=== PATIENT | female | born 1960 | race Caucasian/White ===

== ENCOUNTER → 2017-05-23 | Outpatient (CLI) | payer OTHER ==
--- NOTE | 2017-05-24 07:50 | MM ---
Reason for exam: additional evaluation requested from prior study. Last mammogram was performed 1 year and 1 month ago. History: Patient is postmenopausal, has history of colon cancer at age 51, has history of breast cancer at age 39, and had first child at age 32. Family history of breast cancer in maternal aunt at age 75. Benign stereotactic core biopsy of the left breast, April 06, 2004. Benign stereotactic core biopsy of the right breast, April 06, 2004. Lumpectomy of the right breast, 2003. Radiation therapy, 2003. Core biopsy of the left breast. Core biopsy of the right breast. Took antineoplastic for 5 years beginning at age 43. Physical Findings: Nurse did not find any significant physical abnormalities on exam. MG Diagnostic Mammo w CAD KENNY Bilateral CC and MLO view(s) were taken. Prior study comparison: May 04, 2016, bilateral MG diagnostic mammo w CAD KENNY. April 12, 2015, bilateral MG screening mammo w CAD. There are scattered fibroglandular densities. Finding #1: Architectural distortion in the upper outer quadrant of the right breast consistent with known lumpectomy. Finding #2: There are typically benign round calcifications in both breasts. Previous mammotome biopsy in the left breast. These results were verbally communicated with the patient and result sheet given to the patient on 05/23/17. ASSESSMENT: Benign, BI-RAD 2 RECOMMENDATION: Follow-up diagnostic mammogram of both breasts in 1 year.
== END | disposition home or self-care (01) ==
LOC: RADMAMWWP 14:55
PROVIDERS: ATTEND Internal Medicine Hematology & Oncology
DX: Z08 Encounter for follow-up examination after completed treatment for malignant neoplasm (principal); Z85.3 Personal history of malignant neoplasm of breast

== ENCOUNTER → 2017-08-14 | Outpatient (CLI) | payer OTHER ==
[2017-08-14 18:00] LABS: Basophils % (A) 0 %; Eosinophils # (A) 0.1 k/uL (0-0.7); Eosinophils % (A) 2 %; HCT 44.2 % (34.0-46.0); HGB 14.2 gm/dL (11.4-16.0); Lymphocytes # (A) 0.8 k/uL (1.0-4.8); Lymphocytes % (A) 16 %; MCH 28.6 pg (25.0-35.0); MCHC 32.2 g/dL (31.0-37.0); MCV 88.7 fL (80.0-100.0); Mean Platelet Volume 8.9; Monocytes # (A) 0.2 k/uL (0-1.0); Monocytes % (A) 4 %; Neutrophils # (A) 3.9 k/uL (1.3-7.7); Neutrophils % (A) 77 %; Platelet Count 190 k/uL (150-450); RBC 4.98 m/uL (3.80-5.40); RDW 13.9 % (11.5-15.5)
== END | disposition home or self-care (01) ==
LOC: LABPAT 14:49
PROVIDERS: ATTEND Obstetrics & Gynecology
DX: Z01.818 Encounter for other preprocedural examination (principal); E11.9 Type 2 diabetes mellitus without complications; I10 Essential (primary) hypertension; N95.0 Postmenopausal bleeding; D25.9 Leiomyoma of uterus, unspecified; Z01.812 Encounter for preprocedural laboratory examination
CPT/HCPCS: 85025; 87086; 93005

== ENCOUNTER → 2017-08-14 | Outpatient (CLI) | payer OTHER ==
[2017-08-14 16:51] LABS: Albumin 4.1 g/dL (3.5-5.0); Calcium 9.5 mg/dL (8.4-10.2); Potassium 4.2 mmol/L (3.5-5.1); Total Bilirubin 0.4 mg/dL (0.2-1.3); Total Protein 7.3 g/dL (6.3-8.2)
[2017-08-15 03:50] LABS: Hemoglobin A1C 5.9 % (4.0-6.0)
== END | disposition home or self-care (01) ==
LOC: LABWHC1 14:54
PROVIDERS: ATTEND Family Medicine
DX: E11.9 Type 2 diabetes mellitus without complications (principal); I10 Essential (primary) hypertension; E03.9 Hypothyroidism, unspecified; E78.5 Hyperlipidemia, unspecified
CPT/HCPCS: 36415; 80053; 80061; 83036; 84443

== ENCOUNTER 2017-08-20 05:25 | Day surgery (SDC) | payer OTHER ==
--- NOTE | 2017-08-16 08:48 | HP ---
HISTORY AND PHYSICAL History and physical for surgery this upcoming August 20. This is a 56-year-old white female, 2, para 2, who presents with postmenopausal bleeding. The patient has a history of endometrial hyperplasia, most recent endometrial biopsy on 06/18/17 is significant for weakly proliferative tissue. She has a history of both colon cancer and breast cancer, and in light of her history of endometrial hyperplasia without atypia as well as obesity and continued postmenopausal bleeding, my recommendation is for vaginal hysterectomy. Patient saw Dr. Huitron for the potential option of sling procedure as well, and he deems this additional procedure unnecessary. REVIEW OF SYSTEMS: Review of systems is otherwise negative, patient is still sexually active. PAST MEDICAL HISTORY: Past medial history is significant for breast cancer, colon cancer, diabetes, hypertension, thyroid disorder. PAST SURGICAL HISTORY: Colon surgery 2011, endometrial ablation in the past, right breast surgery and tubal ligation. CURRENT MEDICATIONS: 1. Levothyroxine 75 mcg daily. 2. Lisinopril 30 mg two 10 mg tablets in the morning, one 10 mg tablet in the evening. 3. Metformin 500 mg 1 tablet 3 times daily. 4. Metoprolol tartrate 50 mg once daily. 5. Vitamin D2 once weekly. 6. Meloxicam 15 mg tablet once daily. ALLERGIES: None known. FAMILY HISTORY: Family history is significant for myocardial infarction in the patient's father. REPRODUCTIVE HISTORY: Reproductive history IS significant for 2 full-term vaginal deliveries, uncomplicated. SOCIAL HISTORY: Patient is , she has never been a smoker, she works as a assistant associate professor at [employer]. PHYSICAL EXAMINATION: On exam, this is a pleasant female, 5 feet 1 inch, 181 pounds, BMI 34. HEENT examination is negative, good dentition, no thyromegaly, no lymphadenopathy. Breast exam reveals breasts to be symmetric to inspection, no axillary adenopathy, no skin changes, no nipple discharge, no discernible lesions or masses. Abdominal exam reveals no organomegaly, no tenderness, active bowel sounds, no evidence of herniorrhaphy. Chest is clear to auscultation in all craven anteriorly and posteriorly. Cardiac exam reveals no murmur, click, or rub, normal S1 and S2. External genitalia is well-estrogenized, cervix is multiparous, uterus is small, mobile, midline, nontender. Adnexa are negative bilaterally. There is a small amount of uterine descensus noted. Rectal exam reveals FIT negative stool, good sphincter tone, no rectocele or cystocele appreciated. IMPRESSION: Continued postmenopausal bleeding with a small fibroid uterus, status post endometrial ablation with recent negative endometrial biopsy. Personal history of breast and colon cancer as well as obesity. PLAN: We will proceed with vaginal hysterectomy. The risks, benefits, and alternatives of this plan have been discussed in detail. The patient is aware of the risk of bleeding, infection, perforation or damage to bowel, bladder, ureters, or indeed any pelvic or abdominal organs. She understands the risks of anesthesia to include aspiration, nerve damage, or even . All questions are answered, ACOG pamphlet on the procedure has been given to the patient and she has reviewed it in detail. MMODL / IJN: [id number] /
[~2017-08-20 05:25] MED LIST: ceFAZolin IN SWFI 2 GM/20 ML SYRINGE IVP ONE
[2017-08-20] MEDS ORDERED: SCOPOLAMINE 1.5MG/72HR PATCH TRANSDERM ONE (05:30)
[2017-08-20] MEDS ORDERED: LACTATED RINGERS 1,000 ML IV SCH ×2 (05:30→19:00)
[2017-08-20] MEDS ORDERED: DEXAMETHASONE SOD PHOSPHATE 10 MG/ML 1 ML VIAL IV ONE (05:30)
[2017-08-20] MEDS ORDERED: MIDAZOLAM 2 MG/2 ML VIAL IV PRN (05:30)
[2017-08-20] MEDS ORDERED: fentaNYL (PF) 50 MCG/ML 2 ML AMP IV PRN (05:30)
[2017-08-20 06:33] LABS: Glucose,Whole Blood 95 mg/dL (75-99)
[2017-08-20] MEDS ORDERED: LIDOCAINE 1% 20 ML VIAL (10MG/ML) FOR IV START INTRADERMA ONE (06:37)
[2017-08-20] MEDS: ONDANSETRON 4 MG/2 ML VIAL IVP ONE ×2 (06:37→17:00)
[2017-08-20] MEDS ORDERED: VASOPRESSIN 20 UNIT/ML 1 ML VIAL SQ ONE (07:49)
[2017-08-20] MEDS ORDERED: BACITRACIN 500 UNIT/GM OINT 28.4 GM TUBE TOPICAL ONE (07:53)
[2017-08-20] MEDS ORDERED: LACTATED RINGERS 1,000 ML IV ONE (08:05)
[2017-08-20] MEDS ORDERED: SIMETHICONE 80 MG CHEWABLE PO PRN (08:38)
[2017-08-20] MEDS ORDERED: Acetaminophen-Codeine 300-30mg TAB PO PRN (08:38)
[2017-08-20] MEDS ORDERED: diphenhydrAMINE 50 MG/ML 1 ML VIAL IVP PRN (08:38)
--- NOTE | 2017-08-20 08:38 | P.OP ---
Date of Procedure: 08/20/17 Preoperative Diagnosis: Postmenopausal bleeding, history of endometrial hyperplasia without atypia Postoperative Diagnosis: Pathology pending Procedure(s) Performed: Vaginal hysterectomy Anesthesia: spinal Surgeon: Va Aj Brake Lining Maker #1: Dacia Garcia Estimated Blood Loss (ml): 50 IV fluids (ml): 900 Urine output (ml): 75 Pathology: other (Cervix and uterus) Condition: stable Disposition: PACU Operative Findings: Normal-appearing ovaries bilaterally Description of Procedure: Patient is brought to the operating suite, a spinal with Duramorph is performed. Anesthesia was administered and she is placed in the dorsal lithotomy position. Antibiotics given. The appropriate timeout is performed to assure proper patient and procedural identification. The cervix, vagina, perineal body and lower abdomen are all prepped and draped in the usual sterile fashion. The weighted speculum was placed into the vagina. Bladder is drained for approximately 50 mL of concentrated urine. Anterior lip of the cervix is grasped with a double-tooth tenaculum. Cervix is injected circumferentially with dilute Pitressin solution, 10 mL total. A skull valley blade scalpel is then used to incise the mucosa circumferentially with a V like positioning in the back. A sponge rolled finger is used to sweep the mucosa from the underlying planes. The peritoneum is entered at 6:00 with a Metzenbaum scissor, suture tied with 2- 0 Vicryl. This is held with a hemostat. Large billed speculum is then placed into the peritoneal cavity. Care at all times is taken to keep the mucosa swept well from the operative field to avoid bladder and/or ureteral injury. Uterosacral cardinal ligaments are identified, clamped cut and tied with a 0 Vicryl suture, held in a fanlike fashion with hemostats. Uterine vasculature is skeletonized, clamped cut and suture ligated. 2 additional pedicles are taken superior to the vessels. The anterior peritoneum was then entered with the Bovie at 12:00. Amie clamps are used across the final pedicles and the specimen is removed. These pedicles are suture tied with 0 Vicryl, flashed, and retied for excellent hemostasis. Bilateral ovaries are inspected and noted to be normal, left in situ per the patient's wishes. All pedicles are once again visualized and noted to be hemostatically intact. The 2-0 Vicryl suture at 6:00 is brought around circumferentially to close the peritoneum. The previously held uterosacral cardinal ligament complex these are now brought across to incorporate the opposite complex as well as vaginal mucosa. 2 additional [id number] sutures are used to close the vaginal mucosa. Hemostasis is very good. The vagina is packed with one-inch iodophor gauze with basic tracing. Beavers catheter is placed for another 25 mL of urine, it is noted to be clear. All sponge needle and enhancement counts are correct at the end of the procedure. Patient is brought back to the recovery room in good condition with stable vital signs including blood pressure 120/89, pulse 77.
[2017-08-20 09:10] LABS: Glucose,Whole Blood 150 mg/dL (75-99)
[2017-08-20] MEDS ORDERED: MORPHINE SULFATE/PF 10MG/10ML VL IVP PRN (09:33)
[2017-08-20] MEDS ORDERED: METOCLOPRAMIDE 5 MG/ML 2 ML VIAL IVP PRN (09:33)
[2017-08-20] MEDS ORDERED: PROMETHAZINE INJ 6.25 MG in SODIUM CHLORIDE 0.9% 50 ML IVPB PRN (09:33)
[2017-08-20] MEDS ORDERED: NALOXONE 0.4 MG/ML 1 ML VIAL IV PRN (09:33)
[2017-08-20 11:00] VITALS: BMI 33.4
[2017-08-20] MEDS ORDERED: ONDANSETRON 4 MG/2 ML VIAL IVP STA (17:00)
[2017-08-20] MEDS ORDERED: ZOLPIDEM 5 MG TAB PO PRN (21:00)
--- NOTE | 2017-08-21 08:05 | P.DS ---
Providers Date of admission: 08/20/16 Expected date of discharge: 08/21/17 Attending physician: Va Aj Primary care physician: Nichelle Juarez [facility] Course: This is a 56-year-old female who presented with a history of continued postmenopausal bleeding. She in addition had uterine prolapse of a mild degree. Endometrial biopsy had revealed endometrial hyperplasia without atypia. This was treated with cyclic progesterone, and yet the bleeding continued. Repeat biopsy revealed disordered proliferative endometrium and the patient elected to have surgical palliation of this condition. Please see my dictated history and physical for details. Patient was admitted and underwent a vaginal hysterectomy under my care yesterday. She did well intraoperatively. Ovaries appeared normal and therefore were left in situ per her wishes. Please see dictated operative note for details. This morning the patient is doing well. Beavers catheter and vaginal packing been removed. Pain is well controlled. Vital signs a been stable, however patient's oxygenation levels have been low. Without oxygen she is approximately 90-91% O2 saturation, with 2-3 L nasal cannula oxygenation this improves to 98%. She is working on the Tri-Flow at the bedside nicely. She is tolerating regular food, is voiding, and is passing flatus. Plan is to allow patient to shower this morning and monitor her oxygenation status. If it continues to improve, she will be discharged home later today in good condition. I've asked her to follow-up with me in the office in 2 weeks. I reminded her no intercourse, tampons or douching. She will use over-the- counter products as needed for pain, Advil Motrin or Aleve as directed. I've asked her to call me with any fevers shakes or chills, bloody vaginal discharge , with any issues voiding or with bowel movements, with any pain not alleviated by [id number] products, or with any vaginal bleeding. Indeed she is to call with any difficulties. She will follow-up with her primary care physician' s for pulmonary status. Oxygenation levels do not improve after showering increased ambulation, I will consult hospitalist prior to discharge. Patient Condition at Discharge: Good Plan - Discharge Summary Discharge Rx Participant: Yes New Discharge Prescriptions: No Action metFORMIN HCL [Glucophage] 500 mg PO TID Levothyroxine Sodium [Synthroid] 75 mcg PO DAILY Meloxicam 15 mg PO DAILY Lisinopril [Zestril] 20 mg PO DAILY Metoprolol Tartrate [Lopressor] 50 mg PO DAILY Ergocalciferol [Vitamin D2] 50,000 unit PO MO Lisinopril [Zestril] 10 mg PO HS Mirabegron [Myrbetriq] 50 mg PO DAILY Discharge Medication List Levothyroxine Sodium [Synthroid] 75 mcg PO DAILY 06/30/14 [History] Lisinopril [Zestril] 20 mg PO DAILY 06/30/14 [History] Meloxicam 15 mg PO DAILY 06/30/14 [History] Metoprolol Tartrate [Lopressor] 50 mg PO DAILY 06/30/14 [History] metFORMIN HCL [Glucophage] 500 mg PO TID 06/30/14 [History] Ergocalciferol [Vitamin D2] 50,000 unit PO MO 08/10/17 [History] Lisinopril [Zestril] 10 mg PO HS 08/10/17 [History] Mirabegron [Myrbetriq] 50 mg PO DAILY 08/10/17 [History] Follow up Appointment(s)/Referral(s): Va Aj MD [STAFF PHYSICIAN] - 2 Weeks
--- NOTE | 2017-08-21 10:52 | P.PN ---
Progress Note - Text Progress Note Date: 08/21/17 Postoperative day 1 status post vaginal hysterectomy ,, and intrathecal morphine given for postoperative analgesia, patient doing well, there is no anesthesia related complications, Patient had no headache, vital signs stable , Assessment and plan= postop day 1 status post , doing well there is no anesthesia related complication.
[2017-08-21] MEDS: IBUPROFEN 600 MG TAB PO PRN ×2 (11:03→21:28)
--- NOTE | 2017-08-21 12:26 | P.CON ---
Consult Note - . Consult date: 08/21/17 Assessment/Plan:: 89 year all female with multiple medical problems including history of breast cancer colon cancer diabetes who was admitted to the hospital for hysterectomy the patient did have episodes of hypoxia consulted for that patient states that she did have a little bit shortness of breath yesterday but after they put her on oxygen the shortness of breath resolved Is not complaining of any chest pain or vomiting or fever at this time Patient did have history SECONDHAND smoking at home Vital Signs - 24 hr 08/20/17 08/20/17 08/20/17 12:30 12:33 14:00 Temperature Pulse Rate [ 60 Pulse Oximetery ] Respiratory 16 16 Rate Blood Pressure 98/57 [Right Arm Supine] O2 Sat by Pulse 96 95 96 Oximetry 08/20/17 08/20/17 08/20/17 14:25 14:33 15:00 Temperature 97.5 F L 97.6 F Pulse Rate [ 77 79 Pulse Oximetery ] Respiratory 17 16 Rate Blood Pressure 102/50 90/61 [Right Arm Supine] O2 Sat by Pulse 96 96 95 Oximetry 08/20/17 08/20/17 08/20/17 16:00 17:00 17:32 Temperature 98.9 F Pulse Rate [ 88 Pulse Oximetery ] Respiratory 17 18 18 Rate Blood Pressure 101/63 [Right Arm Supine] O2 Sat by Pulse 95 Oximetry 08/20/17 08/20/17 08/20/17 17:57 20:00 22:00 Temperature 98.3 F Pulse Rate [ 79 75 Pulse Oximetery ] Respiratory 18 16 16 Rate Blood Pressure 89/59 [Right Arm Supine] O2 Sat by Pulse 95 97 97 Oximetry 08/20/17 08/21/17 08/21/17 23:59 02:00 04:00 Temperature 98.2 F 98.1 F Pulse Rate [ 80 Pulse Oximetery ] Respiratory 16 16 16 Rate Blood Pressure 110/64 109/55 [Right Arm Supine] O2 Sat by Pulse 97 96 97 Oximetry 08/21/17 06:00 Temperature Pulse Rate [ 58 L Pulse Oximetery ] Respiratory 18 Rate Blood Pressure [Right Arm Supine] O2 Sat by Pulse 96 Oximetry Review of systems and systems has been reviewed all negative and positive findings as per HPI Constitutional: No acute distress, conversant, pleasant Eyes: Anicteric sclerae, moist conjunctiva, no lid-lag PERRLA ENMT: NC/AT Oropharynx clear, no erythema, exudates Neck: Supple, FROM, no masses, or JVD No carotid bruits No thyromegaly Lungs: Decreased breath sounds bilaterally no upper increases Cardiovascular: Heart regular in rate and rhythm, No murmurs, gallops, or rubs No peripheral edema Abdominal: Soft, no guarding, Skin: Normal temperature, tone, texture, turgor No induration No subcutaneous nodules No rash, lesions No ulcers Extremities: No digital cyanosis Psychiatric:Alert and oriented to person, place and time Appropriate affect Intact judgement Neuro: Muscles Strength 5/5 in all 4 extremities Laboratory Tests Range/Units 08/14/17 08/20/17 08/20/17 15:29 06:25 09:08 POC Glucose (mg/dL) (75-99) mg/dL 95 150 H POC Glu Palletiser Operator Jammie Sylvester Tammy Blood Type A Positive Blood Type Recheck A Pos Antibody Screen NEGATIVE Spec Expiration Date 08/22/20172328 Assessment and plan Hypoxia acute exact etiology not clear We will check VQ scan of the lungs to rule out PE since the patient is ALLERGIC to IV dye We will also check computed tomography scan of the lungs to rule out any metastatic disease as the patient did have history of breast cancer and colon cancer in the past We'll check EKG and cardiac enzymes Keep the patient on oxygen DuoNeb as needed We will also stop IV hydration and consider IV Lasix for possible volume overload Diabetes acute patient with sliding scale insulin History of colon cancer History of breast cancer History of secondhand smoking for several years
--- NOTE | 2017-08-21 13:16 | CT ---
EXAMINATION TYPE: CT chest wo con DATE OF EXAM: 08/21/2017 COMPARISON: NONE HISTORY: Patient complains of hypoxia and tachycardia post hysterectomy. CT DLP: 423.9 mGycm. Automated Exposure Control for Dose Reduction was Utilized. TECHNIQUE: CT scan of the thorax is performed without IV contrast. FINDINGS: LUNGS: There are tiny right greater than left pleural effusions. There is scattered atelectatic valentine e in both bases. There is additional linear scarring and/or atelectasis in both lower lobes. No pneum othorax is seen bilaterally. Tracheobronchial tree is patent MEDIASTINUM: Lack of IV contrast is noted to limit evaluation for mediastinal and especially hilar ad enopathy. There are no definitive greater than 1 cm hilar or mediastinal lymph nodes. No significan t pericardial effusion is seen. Mild cardiomegaly is present. There is mild coronary artery calcifica tion which is noted marker for coronary artery disease. OTHER: Underlying S-shaped scoliosis upper to midthoracic spine is present. Surgical clips right nikki st from lumpectomy are noted. There is 1 cm splenule in inferior splenic hilum. There is mild fat rep laced atrophy of pancreas. Cholecystectomy clips are noted. IMPRESSION: Cardiomegaly with tiny bilateral pleural effusions. Correlate for mild fluid overload sta te or CHF exacerbation. Scattered areas of atelectasis in both lower lobes. No suspicious focal infil trate.
--- NOTE | 2017-08-21 14:24 | NM ---
EXAMINATION TYPE: NM pul vent and perfuse DATE OF EXAM: 08/21/2017 COMPARISON: Same day chest CT HISTORY: Hypoxia and tachycardia rule out pulmonary embolism TECHNIQUE: Utilizing inhalation of 68.4 mCi Tc 99m DTPA aerosol and intravenous injection of 5.45 mC i of Tc 99m MAA, ventilation and perfusion images are acquired post injection in multiple projections . FINDINGS: Few scattered small matching defects are seen. There is no evidence of mismatched defects. IMPRESSION: Low scintigraphic probability for pulmonary embolism
[2017-08-21 14:57] LABS: ABG Base Excess 0.9 mmol/L; ABG HCO3 25 mmol/L (21-25); ABG Oxygen Saturation 92.9 % (94-97); ABG PCO2 39 mmHg (35-45); ABG PH 7.43 (7.35-7.45); ABG PO2 58 mmHg (83-108); ABG TCO2 27 mmol/L (19-24)
[2017-08-21] MEDS: IPRATROPIUM-ALBUTEROL 3 ML NEB INHALATION SCH ×3 (15:09→20:58)
[2017-08-21 15:31] LABS: Albumin 3.2 g/dL (3.5-5.0); Calcium 9.4 mg/dL (8.4-10.2); Total Bilirubin 0.5 mg/dL (0.2-1.3); Total Protein 5.9 g/dL (6.3-8.2)
[2017-08-21] MEDS: methylPREDNISolone SOD SUCCI 40 MG/ML 1 ML VIAL IV SCH ×2 (15:31→23:33)
[2017-08-21] MEDS: FUROSEMIDE 10 MG/ML 2 ML VIAL IV SCH (15:31)
[2017-08-21 15:33] LABS: Basophils # (A) 0.1 k/uL (0-0.2); Basophils % (A) 1 %; Eosinophils # (A) 0.1 k/uL (0-0.7); Eosinophils % (A) 1 %; HCT 35.3 % (34.0-46.0); HGB 12.1 gm/dL (11.4-16.0); Lymphocytes # (A) 1.7 k/uL (1.0-4.8); Lymphocytes % (A) 16 %; MCH 29.4 pg (25.0-35.0); MCHC 34.3 g/dL (31.0-37.0); MCV 85.7 fL (80.0-100.0); Mean Platelet Volume 8.6; Monocytes # (A) 0.5 k/uL (0-1.0); Monocytes % (A) 5 %; Neutrophils # (A) 7.8 k/uL (1.3-7.7); Neutrophils % (A) 76 %; Platelet Count 201 k/uL (150-450); RBC 4.12 m/uL (3.80-5.40); RDW 13.9 % (11.5-15.5); WBC 10.3 k/uL (3.8-10.6)
[2017-08-21] MEDS: SENNOSIDES-DOCUSATE SODIUM 1 EACH TAB PO SCH ×2 (21:29→21:31)
[2017-08-22] MEDS: FUROSEMIDE 10 MG/ML 2 ML VIAL IV SCH ×2 (00:46→03:46)
[2017-08-22] MEDS: IPRATROPIUM-ALBUTEROL 3 ML NEB INHALATION SCH ×3 (04:12→12:14)
--- NOTE | 2017-08-22 07:22 | P.PN ---
Subjective Progress Note Date: 08/22/17 Principal diagnosis: Postoperative day #2, hypoxemia of uncertain origin. Objective - Vital Signs Vital signs: Vital Signs Temp 98.8 F 08/21/17 20:00 Pulse 99 08/22/17 04:29 Resp 14 08/22/17 06:00 BP 116/64 08/21/17 20:00 Pulse Ox 93 L 08/22/17 04:00 Intake & Output 08/21/17 08/22/17 08/22/17 18:59 06:59 18:59 Output Total 2400 Balance -2400 Weight 81.647 kg Output: Urine 2400 Other: # Voids 4 1 - Constitutional General appearance: Present: average body habitus, cooperative - EENT Eyes: Present: PERRLA ENT: Present: hearing grossly normal - Neck Thyroid: bilateral: normal size - Respiratory Respiratory: bilateral: CTA - Cardiovascular Rhythm: regular Heart sounds: normal: S1, S2 - Gastrointestinal General gastrointestinal: Present: normal bowel sounds - Genitourinary Genitourinary Comment(s): Scant vaginal drainage consistent with postoperative day 2, vaginal hysterectomy - Integumentary Integumentary: Present: normal - Neurologic Neurologic: Present: CNII-XII intact - Musculoskeletal Musculoskeletal: Present: strength equal bilaterally - Psychiatric Psychiatric: Present: A&O x's 3, appropriate affect, intact judgment & insight - Labs CBC & Chem 7: 08/21/17 15:02 08/21/17 15:02 Labs: Abnormal Lab Results - Last 24 Hours (Table) 08/21/17 08/21/17 08/21/17 Range/Units 14:48 15:02 15:02 Neutrophils # 7.8 H (1.3-7.7) k/uL ABG pO2 58 L (83-108) mmHg ABG Total CO2 27 H (19-24) mmol/L ABG O2 Saturation 92.9 L (94-97) % BUN 23 H (7-17) mg/dL Creatinine 1.15 H (0.52-1.04) mg/dL Glucose 121 H (74-99) mg/dL AST 60 H (14-36) U/L Total Protein 5.9 L (6.3-8.2) g/dL Albumin 3.2 L (3.5-5.0) g/dL Assessment and Plan Plan: Continue evaluation per medical team, cardiology consult ordered for today, Dr. Carlson aware. Anticipate discharge home today, with outpatient follow-up as deemed appropriate. Time with Patient: Less than 30
[2017-08-22] MEDS: methylPREDNISolone SOD SUCCI 40 MG/ML 1 ML VIAL IV SCH (08:17)
[2017-08-22] MEDS: IBUPROFEN 600 MG TAB PO PRN (08:28)
[2017-08-22] MEDS ORDERED: FUROSEMIDE 10 MG/ML 2 ML VIAL IV STA (09:24)
[2017-08-22] MEDS ORDERED: POTASSIUM CHLORIDE ER 10 MEQ TAB.ER.PRT PO STA (09:26)
[2017-08-22] MEDS: SENNOSIDES-DOCUSATE SODIUM 1 EACH TAB PO SCH (09:57)
--- NOTE | 2017-08-22 10:13 | ECHOF ---
Referral Reason:pain/shortness of breath/post procedure MEASUREMENTS -------- HEIGHT: 154.9 cm WEIGHT: 81.6 kg BP: 116/64 RVIDd: 2.4 cm (< 3.3) IVSd: 1.1 cm (0.6 - 1.1) LVIDd: 3.9 cm (3.9 - 5.3) LVPWd: 1.1 cm (0.6 - 1.1) IVSs: 1.4 cm LVIDs: 2.7 cm LVPWs: 1.2 cm LA Diam: 2.9 cm (2.7 - 3.8) LAESV Index (A-L): 19.82 ml/m Ao Diam: 3.0 cm (2.0 - 3.7) AV Cusp: 1.9 cm (1.5 - 2.6) EPSS: 0.5 cm MV E Thuan: 1.06 m/s MV DecT: 142 ms MV A Thuan: 1.24 m/s MV E/A Ratio: 0.85 RAP: 5.00 mmHg RVSP: 25.37 mmHg MV EF SLOPE: 95.74 mm/s (70 - 150) MV EXCURSION: 1.34 cm (> 18.000) FINDINGS -------- Sinus rhythm. This was a technically good study. The left ventricular size is normal. There is borderline concentric left ventricular hypertrophy. Overall left ventricular systolic function is normal with, an EF between 55 - 60 %. The right ventricle is normal in size. Normal LA size by volume 22+/-6 ml/m2. The right atrium is normal in size. The aortic valve is trileaflet and appears structurally normal. There is trace mitral regurgitation. Mild tricuspid regurgitation present. Right ventricular systolic pressure is normal at < 35 mmHg. There is no pulmonic regurgitation present. The aortic root size is normal. Normal inferior vena cava with normal inspiratory collapse consistent with estimated right atrial pre ssure of 5 mmHg. There is no pericardial effusion. CONCLUSIONS -------- 1. Sinus rhythm. 2. This was a technically good study. 3. The left ventricular size is normal. 4. There is borderline concentric left ventricular hypertrophy. 5. Overall left ventricular systolic function is normal with, an EF between 55 - 60 %. 6. The right ventricle is normal in size. 7. Normal LA size by volume 22+/-6 ml/m2. 8. The right atrium is normal in size. 9. The aortic valve is trileaflet and appears structurally normal. 10. There is trace mitral regurgitation. 11. Mild tricuspid regurgitation present. 12. Right ventricular systolic pressure is normal at < 35 mmHg. 13. There is no pulmonic regurgitation present. 14. The aortic root size is normal. 15. Normal inferior vena cava with normal inspiratory collapse consistent with estimated right atrial pressure of 5 mmHg. 16. There is no pericardial effusion. COLLECTION SUPERVISOR: KENTON Campo
--- NOTE | 2017-08-22 11:57 | CONS ---
CONSULTATION This is a 56-year-old lady with a history of hypertension and type 2 diabetes, who sees Dr. Arceo in the outpatient setting. She also has hypothyroidism. She was admitted to the hospital electively for a vaginal hysterectomy for fibroids and dysfunctional uterine bleeding. Following the surgery yesterday on day 1 postop, she started having shortness of breath. She was seen by the hospitalist and advised to have a V/Q scan which was also unremarkable for any significant suggestion of pulmonary embolism. She continued to have shortness of breath and therefore I was asked to see her. On questioning, patient indicates to me that her breathing is easier today compared to yesterday. She was somewhat short winded yesterday but after receiving 2 doses of Lasix, which was last evening and this morning, she actually feels better. She denies any chest discomfort. EKG was unremarkable. Heart rate was about 90 beats per minute without any acute changes with sinus rhythm. Her troponin level was also normal. She is resting comfortably at this time. On reviewing the operative record, it appears that this lady received nearly a liter of fluid intraoperatively. I am not sure how much urine output she had, that is not very well documented. At the time of my evaluation, her breathing is easier. She denies chest pain, has less short of breath compared to yesterday. PAST MEDICAL HISTORY: 1. Hypertension. 2. Type 2 diabetes mellitus. 3. History of dysfunctional uterine bleeding underwent a vaginal hysterectomy performed 48 hours ago. SOCIAL HISTORY: Patient is not a smoker. Does not consume alcohol. ALLERGIES: Patient is allergic to IODINE DYE. MEDICATIONS: Medications at home include metformin 500 mg t.i.d., Lopressor 50 mg daily, lisinopril 20 mg in the morning, 10 mg in the evening, Synthroid 75 mcg daily, and vitamin D supplement. PHYSICAL EXAMINATION: On examination, blood pressure is 140/70, pulse rate is about 90 per minute, regular. HEENT: Unremarkable. Fundus was not examined by me. Neck is supple I cannot appreciate any JVD. There is no carotid bruit. Heart exam reveals S1, S2 heard normally. No significant gallop, rub, or murmur is detected. Lungs reveal fine rales over both bases, more so on the right base. Abdomen is soft, nontender. I did not do a detailed examination. Lower extremities reveal palpable pulses. No edema. Central nervous system is normal. EKG revealed a sinus mechanism, no acute changes. LABORATORY DATA: Laboratory data reveals that troponin was normal. IMPRESSION: 1. Probable mild episode of diastolic acute heart failure with nearly 1 L of fluid administration intraoperatively. However, this condition is improving significantly. 2. History of hypertension with probably some left ventricular hypertrophy. 3. History of type 2 diabetes mellitus. 4. Patient is status post vaginal hysterectomy 48 hours ago. RECOMMENDATIONS: I am recommending an echocardiogram. I will also obtain a BNP. I will give additional 20 mg of Lasix orally, 10 mEq of potassium. Check BMP at noon time and she can be discharged this evening on the same home medications and follow up with Dr. Arceo in about 1 to 2 weeks. I discussed my thoughts in detail with the patient as well as with her nurse. Thank you very much for the consult. PAOLO / NILS: [id number] /
--- NOTE | 2017-08-22 12:02 | P.CNPUL ---
History of Present Illness Consult date: 08/22/17 Reason for consult: dyspnea, hypoxemia, abnormal CXR/CT Chief complaint: Shortness of breath History of present illness: Consult dated 08/22/2017 56-year-old female who is status post vaginal hysterectomy. He was apparently done by Dr. Va Aj. The patient apparently developed some postoperative hypoxemia. She is short of breath. Today we evaluate her over on the fourth floor. She sitting at the bedside. The patient is mildly to And dyspneic. She 's had a ventilation perfusion lung scan which was low probability for pulmonary embolism. She also a CT which showed evidence of small effusions right greater than left and evidence of mild fluid overload. There was cardiomegaly. Her BNP was mildly elevated at 1140 and her troponin was negative. Apparently cardiology is cleared her. Her echocardiogram was good. She has no history of any lung disease. She denies any asthma emphysema a COPD chronic bronchitis, etc. She is a lifelong nonsmoker. Never been short of breath before. I suspect that her shortness of breath relates to some fluid overload may be from intraoperative fluid administration and/or some not taking deep breaths because of the recent surgery. A chest x-ray was never done. According to the nurse, the patient's doing much better now. Her room air saturations are excellent and even with walking, she does not desaturate. That was apparently not the case yesterday. The patient denies any pain. She is coughing and producing some phlegm. She may have a very mild case of bronchitis. Review of Systems A 12 point review of systems is positive for shortness of breath. She is bit of a cough with some green phlegm production. No fever or chills. No chest pain. No coughing up of blood. Past Medical History Past Medical History: Cancer, Diabetes Mellitus, Hyperlipidemia, Hypertension, Musculoskeletal Disorder, Thyroid Disorder Additional Past Medical History / Comment(s): RT Breast CA, colon CA; Back probs r/t fall 2007. VARICOSE VEINS. THICKENING ON UTERUS, PM W/ OCC SPOTTING. History of Any Multi-Drug Resistant Organisms: None Reported Past Surgical History: Bowel Resection, Breast Surgery, Cholecystectomy, Tubal Ligation Additional Past Surgical History / Comment(s): RT BREAST LUMPECTOMY. Past Anesthesia/Blood Transfusion Reactions: Motion Sickness Past Psychological History: No Psychological Hx Reported Smoking Status: Never smoker Past Alcohol Use History: None Reported Past Drug Use History: None Reported - Past Family History Father Family Medical History: Cancer Medications and Allergies Home Medications Medication Instructions Recorded Confirmed Type Levothyroxine Sodium [Synthroid] 75 mcg PO DAILY 06/30/14 08/20/17 History Lisinopril [Zestril] 20 mg PO DAILY 06/30/14 08/20/17 History Meloxicam 15 mg PO DAILY 06/30/14 08/20/17 History Metoprolol Tartrate [Lopressor] 50 mg PO DAILY 06/30/14 08/20/17 History metFORMIN HCL [Glucophage] 500 mg PO TID 06/30/14 08/20/17 History Ergocalciferol [Vitamin D2] 50,000 unit PO MO 08/10/17 08/20/17 History Lisinopril [Zestril] 10 mg PO HS 08/10/17 08/20/17 History Mirabegron [Myrbetriq] 50 mg PO DAILY 08/10/17 08/20/17 History Allergies Allergy/AdvReac Type Severity Reaction Status Date / Time Iodinated Contrast- Oral and Allergy Rash/Hives Verified 08/20/17 06:11 IV Dye iodine AdvReac Rash/Hives Verified 08/20/17 06:11 Physical Exam Osteopathic Statement: *. No significant issues noted on an osteopathic structural exam other than those noted in the History and Physical/Consult. Vitals: Vital Signs Temp Pulse Pulse Pulse Resp BP Pulse Ox 08/22/17 10:00 90 94 24 08/22/17 08:18 92 08/22/17 08:10 86 97 08/22/17 08:00 97.8 F 90 24 145/87 08/22/17 06:00 14 08/22/17 04:29 99 08/22/17 04:18 99 08/22/17 04:00 15 93 L 08/22/17 02:00 14 93 L 08/21/17 21:12 100 08/21/17 21:00 104 H 08/21/17 20:00 98.8 F 98 18 116/64 93 L 08/21/17 18:03 20 08/21/17 16:00 98.4 F 78 18 118/70 95 08/21/17 15:20 80 08/21/17 15:10 72 08/21/17 14:00 65 18 95 08/21/17 12:00 67 18 96 Intake and Output 08/21/17 08/22/17 08/22/17 22:59 06:59 14:59 Output Total 1450 Balance -1450 Output: Urine 1450 Other: # Voids 4 1 1 Weight 81.647 kg No acute distress, oriented 3. The patient's currently not on any oxygen therapy. HEENT examination is grossly unremarkable. Mucous membranes are moist. No oral lesions. Neck supple. Full range of motion. No adenopathy thyromegaly or neck vein distention. Cardiovascular examination reveals regular rhythm rate. S1-S2 normal. No S3 or S4. No discernible murmur noted. Lungs reveal clear breath sounds. Her sounds are equal bilaterally. No adventitious lung sounds including wheezes rhonchi or crackles. Abdomen soft bowel sounds are heard. No masses or tenderness. Extremities are intact. No cyanosis clubbing or edema. Skin is without rash or lesion. Neurologic examination is brief but nonfocal. Results - Laboratory Findings CBC and BMP: 08/21/17 15:02 08/21/17 15:02 ABG ABG pH 7.43 (7.35-7.45) 08/21/17 14:48 ABG pCO2 39 mmHg (35-45) 08/21/17 14:48 ABG pO2 58 mmHg (83-108) L 08/21/17 14:48 ABG O2 Saturation 92.9 % (94-97) L 08/21/17 14:48 Abnormal lab findings: Abnormal Labs 08/20/17 08/21/17 08/21/17 09:08 14:48 15:02 Neutrophils # 7.8 H ABG pO2 58 L ABG Total CO2 27 H ABG O2 Saturation 92.9 L BUN Creatinine Glucose POC Glucose (mg/dL) 150 H AST Total Protein Albumin 08/21/17 15:02 Neutrophils # ABG pO2 ABG Total CO2 ABG O2 Saturation BUN 23 H Creatinine 1.15 H Glucose 121 H POC Glucose (mg/dL) AST 60 H Total Protein 5.9 L Albumin 3.2 L - Diagnostic Findings Chest x-ray: image reviewed CT scan - chest: image reviewed (Labs x-rays a medications are reviewed) Assessment and Plan Assessment: Assessment Postoperative hypoxemia, likely secondary to mild fluid overload from intraoperative fluid administration possible mild purulent tracheobronchitis, and postoperative atelectasis. No evidence of pulmonary most him Normal echocardiogram Status post vaginal hysterectomy No previous history of pulmonary disease Plan: Plan dated 08/22/2017 The patient is still mildly tachypnea can dyspneic. From our perspective she could be discharged home. I would want to make sure that she's walked up and down the hallway before discharge to make sure she does not desaturate. Also do recommend a short course of antibiotics something like a Z-Flaco would probably be fine. I would appreciate seeing her in the office post discharge if she continues to have shortness of breath. Would recommend deep breathing coughing and clearing of secretions. Would also recommend discharge with incentive spirometry. Agree with the administration of diuretics for mild fluid overload, likely secondary to intraoperative fluid administration. Echocardiogram looks good. No evidence of pulmonary most him from our perspective. We'll continue to follow as needed. Time with Patient: Greater than 30
[2017-08-22 12:45] LABS: Calcium 9.9 mg/dL (8.4-10.2); Potassium 3.7 mmol/L (3.5-5.1)
--- NOTE | 2017-08-22 13:04 | P.PN ---
Subjective Progress Note Date: 08/22/17 Principal diagnosis: Patient feels better today Shortness of breath improved Not complaining of any chest pain Patient ambulated twice without any significant drop in her O2 sat Vital Signs - 24 hr 08/21/17 08/21/17 08/21/17 14:00 15:10 15:20 Temperature Pulse Rate 72 80 Pulse Rate [ Bilateral Dorsalis Pedis] Pulse Rate [ 65 Pulse Oximetery ] Respiratory 18 Rate Blood Pressure [Right Arm Supine] O2 Sat by Pulse 95 Oximetry 08/21/17 08/21/17 08/21/17 16:00 18:03 20:00 Temperature 98.4 F 98.8 F Pulse Rate Pulse Rate [ Bilateral Dorsalis Pedis] Pulse Rate [ 78 98 Pulse Oximetery ] Respiratory 18 20 18 Rate Blood Pressure 118/70 116/64 [Right Arm Supine] O2 Sat by Pulse 95 93 L Oximetry 08/21/17 08/21/17 08/22/17 21:00 21:12 02:00 Temperature Pulse Rate 104 H 100 Pulse Rate [ Bilateral Dorsalis Pedis] Pulse Rate [ Pulse Oximetery ] Respiratory 14 Rate Blood Pressure [Right Arm Supine] O2 Sat by Pulse 93 L Oximetry 08/22/17 08/22/17 08/22/17 04:00 04:18 04:29 Temperature Pulse Rate 99 99 Pulse Rate [ Bilateral Dorsalis Pedis] Pulse Rate [ Pulse Oximetery ] Respiratory 15 Rate Blood Pressure [Right Arm Supine] O2 Sat by Pulse 93 L Oximetry 08/22/17 08/22/17 08/22/17 06:00 08:00 08:10 Temperature 97.8 F Pulse Rate 86 Pulse Rate [ 90 Bilateral Dorsalis Pedis] Pulse Rate [ Pulse Oximetery ] Respiratory 14 24 Rate Blood Pressure 145/87 [Right Arm Supine] O2 Sat by Pulse 97 Oximetry 08/22/17 08/22/17 08:18 10:00 Temperature Pulse Rate 92 Pulse Rate [ 90 Bilateral Dorsalis Pedis] Pulse Rate [ 94 Pulse Oximetery ] Respiratory 24 Rate Blood Pressure [Right Arm Supine] O2 Sat by Pulse Oximetry Constitutional: No acute distress, conversant, pleasant Eyes: Anicteric sclerae, moist conjunctiva, no lid-lag PERRLA ENMT: NC/AT Oropharynx clear, no erythema, exudates Neck: Supple, FROM, no masses, or JVD No carotid bruits No thyromegaly Lungs: Clear to auscultation Normal respiratory effort, no accessory muscle use Cardiovascular: Heart regular in rate and rhythm, No murmurs, gallops, or rubs No peripheral edema Abdominal: Soft Nontender, no guarding, rebound or rigidity Abdomen moving with respiration Normoactive bowel sounds No hepatomegaly, No splenomegaly No palpable mass No abdominal wall hernia noted Skin: Normal temperature, tone, texture, turgor No induration No subcutaneous nodules No rash, lesions No ulcers Extremities: No digital cyanosis No clubbing Pedal pulses intact and symmetrical Radial pulses intact and symmetrical Normal gait and station No calf tenderness Psychiatric:Alert and oriented to person, place and time Appropriate affect Intact judgement Hypoxia resolved VQ scan did not show any PE Computed tomography scan of the lung minimal cardiomegaly Shortness of breath likely due to bronchitis and mild volume overload Patient has been cleared to go home by cardiology and pulmonology Patient to follow up closely with pulmonology and cardiology Z-Flaco and albuterol has been given to the patient for outpatient Objective - Vital Signs Vital signs: Vital Signs Temp 97.8 F 08/22/17 08:00 Pulse 90 08/22/17 10:00 Resp 24 08/22/17 10:00 BP 145/87 08/22/17 08:00 Pulse Ox 97 08/22/17 08:10 Intake & Output 08/21/17 08/22/17 08/22/17 18:59 06:59 18:59 Output Total 2400 Balance -2400 Weight 81.647 kg Output: Urine 2400 Other: # Voids 4 1 1 - Labs CBC & Chem 7: 08/21/17 15:02 08/22/17 11:58 Labs: Abnormal Lab Results - Last 24 Hours (Table) 08/21/17 08/21/17 08/21/17 Range/Units 14:48 15:02 15:02 Neutrophils # 7.8 H (1.3-7.7) k/uL ABG pO2 58 L (83-108) mmHg ABG Total CO2 27 H (19-24) mmol/L ABG O2 Saturation 92.9 L (94-97) % BUN 23 H (7-17) mg/dL Creatinine 1.15 H (0.52-1.04) mg/dL Glucose 121 H (74-99) mg/dL AST 60 H (14-36) U/L Total Protein 5.9 L (6.3-8.2) g/dL Albumin 3.2 L (3.5-5.0) g/dL 08/22/17 Range/Units 11:58 Neutrophils # (1.3-7.7) k/uL ABG pO2 (83-108) mmHg ABG Total CO2 (19-24) mmol/L ABG O2 Saturation (94-97) % BUN 27 H (7-17) mg/dL Creatinine 1.05 H (0.52-1.04) mg/dL Glucose 183 H (74-99) mg/dL AST (14-36) U/L Total Protein (6.3-8.2) g/dL Albumin (3.5-5.0) g/dL
[2017-08-22 15:04] VITALS: BP 134/76; PULSE 86; RESP 22; TEMP 98.3
--- NOTE | 2017-08-22 20:39 | DS ---
DISCHARGE SUMMARY DISCHARGE ADDENDUM: DATE OF ADMISSION: 08/20/2017. ADMITTING DIAGNOSES: 1. Uterine prolapse. 2. Postmenopausal bleeding. DATE OF DISCHARGE: 08/22/2017 This is a 56-year-old female who presented under my care for vaginal hysterectomy for uterine prolapse, history of postmenopausal bleeding, previous endometrial hyperplasia without atypia with persistent bleeding despite cyclic progesterone. Please see my dictated history and physical for details. The patient was admitted and underwent vaginal hysterectomy with the spinal with Duramorph. She did well intraoperatively. Ovaries appeared normal and therefore were left in situ bilaterally. Estimated blood loss was minimal. Please see my dictated operative note for details. Postoperatively from the gynecologic perspective the patient did well, and was discharged yesterday morning pending improvement of oxygenation. Although the patient is young and not a smoker, her oxygen saturation remained 87% to 89% on room air. Attempting to wean the patient from nasal cannula oxygen was unsuccessful, and therefore hospitalist was consulted. Patient was seen by the hospitalist, who ordered a CT scan of the chest which was negative with the exception of mild cardiomegaly. Dr. Arceo of the cardiology service was consulted. Dr. Santos of the pulmonary service was consulted. V/Q scan was performed and was negative. Patient was ultimately started on inhaler treatment, was given Lasix for diuresis, and has been put on a Z-Flaco. Today medical clearance has been given for discharge home. She is instructed to follow up with Dr. Santos in the office in 1 to 2 weeks, and Dr. Arceo in the office as well in 1 to 2 weeks. She will follow up with me in the office in 2 weeks as well. Postoperative instructions have once again been reviewed, as detailed yesterday. MMODL / IJN: [id number] /
== END 2017-08-22 15:11 | disposition home or self-care (01) ==
LOC: OR 05:25 → 4FBP 08:56 → OR 08-22 15:11
PROVIDERS: ATTEND Obstetrics & Gynecology
DX: N95.0 Postmenopausal bleeding (principal); N80.0 Endometriosis of uterus; N72 Inflammatory disease of cervix uteri; N93.8 Other specified abnormal uterine and vaginal bleeding; D25.9 Leiomyoma of uterus, unspecified; N81.4 Uterovaginal prolapse, unspecified; T81.89XA Other complications of procedures, not elsewhere classified, initial encounter; R09.02 Hypoxemia; R06.82 Tachypnea, not elsewhere classified; R05 Cough; J90 Pleural effusion, not elsewhere classified; J98.11 Atelectasis; I08.1 Rheumatic disorders of both mitral and tricuspid valves; E66.9 Obesity, unspecified; Z68.33 Body mass index [BMI] 33.0-33.9, adult; E11.9 Type 2 diabetes mellitus without complications; I10 Essential (primary) hypertension; E03.9 Hypothyroidism, unspecified; Z85.038 Personal history of other malignant neoplasm of large intestine; Z85.3 Personal history of malignant neoplasm of breast; Z98.51 Tubal ligation status; Z77.22 Contact with and (suspected) exposure to environmental tobacco smoke (acute) (chronic); Z79.84 Long term (current) use of oral hypoglycemic drugs; Z79.890 Hormone replacement therapy; Z79.899 Other long term (current) drug therapy; Z79.1 Long term (current) use of non-steroidal anti-inflammatories (NSAID); Z91.041 Radiographic dye allergy status
CPT/HCPCS: 94640 ×2; 36600; 93005; 86900; 86901; 88305; 80053; 82805; 84484; 85025; 86850; 71250; 78582; 58260; A9540; A9567; J2250; J1100; J1940; J2920; J2405; J0690; 80048; 83880; 88307; 93306; 94760

== ENCOUNTER → 2018-05-24 | Outpatient (CLI) | payer OTHER ==
--- NOTE | 2018-05-24 13:55 | MM ---
Reason for exam: additional evaluation requested from prior study. Last mammogram was performed 1 year ago. History: Patient is postmenopausal, has history of colon cancer at age 51, has history of breast cancer at age 39, and had first child at age 32. Family history of breast cancer in maternal aunt at age 75. Benign stereotactic core biopsy of the left breast, April 06, 2004. Benign stereotactic core biopsy of the right breast, April 06, 2004. Lumpectomy of the right breast, 2003. Radiation therapy, 2003. Core biopsy of the left breast. Core biopsy of the right breast. Took antineoplastic for 5 years beginning at age 43. Physical Findings: Nurse did not find any significant physical abnormalities on exam. MG Diagnostic Mammo w CAD KENNY Bilateral CC and MLO view(s) were taken. Prior study comparison: May 23, 2017, bilateral MG diagnostic mammo w CAD KENNY. May 04, 2016, bilateral MG diagnostic mammo w CAD KENNY. There are scattered fibroglandular densities. Benign appearing bilateral calcifications. No suspicious abnormality. Post therapy change on the right. Post biopsy change on the left. These results were verbally communicated with the patient and result sheet given to the patient on 05/24/18. ASSESSMENT: Benign, BI-RAD 2 RECOMMENDATION: Follow-up diagnostic mammogram of both breasts in 1 year.
== END | disposition home or self-care (01) ==
LOC: RADMAMWWP 12:36
PROVIDERS: ATTEND Internal Medicine Hematology & Oncology
DX: Z08 Encounter for follow-up examination after completed treatment for malignant neoplasm (principal); Z85.3 Personal history of malignant neoplasm of breast
CPT/HCPCS: 77066

== ENCOUNTER → 2019-05-30 | Outpatient (CLI) | payer OTHER ==
--- NOTE | 2019-05-30 14:12 | MM ---
Reason for exam: additional evaluation requested from prior study. Last mammogram was performed 1 year ago. History: Patient is postmenopausal, has history of colon cancer at age 51, has history of breast cancer at age 39, and had first child at age 32. Family history of breast cancer in maternal aunt at age 75. Benign stereotactic core biopsy of the left breast, April 06, 2004. Benign stereotactic core biopsy of the right breast, April 06, 2004. Lumpectomy of the right breast, 2003. Radiation therapy, 2003. Core biopsy of the left breast. Core biopsy of the right breast. Took antineoplastic for 5 years beginning at age 39. Physical Findings: Nurse did not find any significant physical abnormalities on exam. MG Diagnostic Mammo w CAD KENNY Bilateral CC and MLO view(s) were taken. Prior study comparison: May 24, 2018, bilateral MG diagnostic mammo w CAD KENNY. May 23, 2017, bilateral MG diagnostic mammo w CAD KENNY. There are scattered fibroglandular densities. Finding: Architectural distortion in the upper outer quadrant of the right breast consistent with known lumpectomy changes. Previous mammotome biopsy in the left breast. There is no discrete abnormality. These results were verbally communicated with the patient and result sheet given to the patient on 05/30/19. ASSESSMENT: Benign, BI-RAD 2 RECOMMENDATION: Follow-up diagnostic mammogram of both breasts in 1 year.
== END | disposition home or self-care (01) ==
LOC: RADMAMWWP 12:32
PROVIDERS: ATTEND Family Medicine
DX: Z08 Encounter for follow-up examination after completed treatment for malignant neoplasm (principal); Z85.3 Personal history of malignant neoplasm of breast
CPT/HCPCS: 77066

== ENCOUNTER → 2020-02-24 | Outpatient (CLI) | payer OTHER ==
--- NOTE | 2020-02-24 14:46 | XR ---
Lumbar spine HISTORY: Chronic low back pain, M 25.5 5 views of lumbosacral spine There is no evident spondylolysis or spondylolisthesis. Lumbar vertebral bodies show preserved height and bone mineralization. Anterolisthesis grade 1 L4-5. There is loss of disc height at intervertebra l levels. Sclerosis present in the posterior elements of the lumbar spine. There is multilevel spondy losis. Vascular calcifications in the aortoiliac distribution. IMPRESSION: Degenerative disc disease and facet arthropathy.
== END | disposition home or self-care (01) ==
LOC: RADXRMAIN 13:30
PROVIDERS: ATTEND Family Medicine
DX: M51.36 Other intervertebral disc degeneration, lumbar region (principal); M47.816 Spondylosis without myelopathy or radiculopathy, lumbar region
CPT/HCPCS: 72110

== ENCOUNTER → 2020-05-31 | Outpatient (CLI) | payer OTHER ==
--- NOTE | 2020-05-31 11:34 | MM ---
Reason for exam: additional evaluation requested from prior study. Last mammogram was performed 1 year ago. History: Patient is postmenopausal, has history of colon cancer at age 51, has history of breast cancer at age 39, and had first child at age 32. Family history of breast cancer in maternal aunt at age 75. Benign stereotactic core biopsy of the left breast, April 06, 2004. Benign stereotactic core biopsy of the right breast, April 06, 2004. Lumpectomy of the right breast, 2003. Radiation therapy, 2003. Core biopsy of the left breast. Core biopsy of the right breast. Took antineoplastic for 10 years beginning at age 39. Physical Findings: Nurse did not find any significant physical abnormalities on exam. MG Diagnostic Mammo w CAD KENNY Bilateral CC and MLO view(s) were taken. Prior study comparison: May 30, 2019, bilateral MG diagnostic mammo w CAD KENNY. May 24, 2018, bilateral MG diagnostic mammo w CAD KENNY. There are scattered fibroglandular densities. Finding: Architectural distortion in the right breast consistent with known lumpectomy changes. Previous mammotome biopsy in the left breast. There is no discrete abnormality. These results were verbally communicated with the patient and result sheet given to the patient on 05/31/20. ASSESSMENT: Benign, BI-RAD 2 RECOMMENDATION: Follow-up diagnostic mammogram of both breasts in 1 year.
== END | disposition home or self-care (01) ==
LOC: RADMAMWWP 10:51
PROVIDERS: ATTEND Internal Medicine Hematology & Oncology
DX: Z08 Encounter for follow-up examination after completed treatment for malignant neoplasm (principal); Z85.3 Personal history of malignant neoplasm of breast
CPT/HCPCS: 77066

== ENCOUNTER → 2021-07-22 | Outpatient (CLI) | payer OTHER ==
--- NOTE | 2021-07-22 09:12 | MM ---
Reason for exam: additional evaluation requested from abnormal screening. Last mammogram was performed less than 1 month ago. History: Patient is postmenopausal, has history of colon cancer at age 51, has history of breast cancer at age 39, and had first child at age 32. Family history of breast cancer in maternal aunt at age 75. Benign stereotactic core biopsy of the left breast, April 06, 2004. Benign stereotactic core biopsy of the right breast, April 06, 2004. Lumpectomy of the right breast, 2003. Radiation therapy, 2003. Core biopsy of the left breast. Core biopsy of the right breast. Took antineoplastic for 10 years beginning at age 39. Physical Findings: Nurse did not find any significant physical abnormalities on exam. MG Work Up Mamm w CAD LT Spot compression CC, spot compression MLO, and ML view(s) were taken of the left breast. Prior study comparison: July 19, 2021, bilateral MG screening mammo w CAD. May 31, 2020, bilateral MG diagnostic mammo w CAD KENNY. 7mm nodule at approximately 12 o'clock 8cm from nipple. These results were verbally communicated with the patient and result sheet given to the patient on 07/22/21. ASSESSMENT: Incomplete: need additional imaging evaluation, BI-RAD 0 RECOMMENDATION: Ultrasound of the left breast.
--- NOTE | 2021-07-22 09:18 | USB ---
Reason for exam: additional evaluation requested from abnormal screening. History: Patient is postmenopausal, has history of colon cancer at age 51, has history of breast cancer at age 39, and had first child at age 32. Family history of breast cancer in maternal aunt at age 75. Benign stereotactic core biopsy of the left breast, April 06, 2004. Benign stereotactic core biopsy of the right breast, April 06, 2004. Lumpectomy of the right breast, 2003. Radiation therapy, 2003. Core biopsy of the left breast. Core biopsy of the right breast. Took antineoplastic for 10 years beginning at age 39. US Breast Workup Limited LT Left limited breast ultrasound including focal area of concern, retroareolar and axilla demonstrates no cystic or solid lesion seen. Scanned 10-2 o'clock. Given appearance on mammography stereotactic core biopsy recommended. These results were verbally communicated with the patient and result sheet given to the patient on 07/22/21. ASSESSMENT: Suspicious, BI-RAD 4 RECOMMENDATION: Stereotactic core biopsy of the left breast. Called Dr. Avilez's office with mammographic findings and has scheduled an appointment for the patient for 09/07/21 at 4:[address] Hewitt. Biopsy scheduled for 08/15/21 at 8:00. PRELIMINARY REPORT CALLED AND FAXED TO DR. HEWITT ON 07/22/21.
== END | disposition home or self-care (01) ==
LOC: RADMAMWWP 07:01
PROVIDERS: ATTEND Internal Medicine Hematology & Oncology
DX: N63.25 Unspecified lump in the left breast, overlapping quadrants (principal); Z85.3 Personal history of malignant neoplasm of breast; Z80.3 Family history of malignant neoplasm of breast; Z78.0 Asymptomatic menopausal state
CPT/HCPCS: 77065

== ENCOUNTER → 2021-08-15 | Day surgery (SDC) | payer OTHER ==
[2021-08-15 07:26] VITALS: RESP 16
[2021-08-15 08:23] VITALS: BP 143/84; PULSE 73; TEMP 98.1
--- NOTE | 2021-08-15 08:59 | MM ---
Stereotactic Mammotome core biopsy left breast. HISTORY: Nodule left breast The nodule in question within the left breast was targeted by the undersigned. Procedure was perform ed by the undersigned. Informed consent was obtained and all of the patients questions were answered. The standard sterile technique was utilized and appropriate local anesthesia was obtained with 1% l idocaine. Mammotome probe was advanced and multiple core samples were obtained and sent to pathology for interpretation. Microclip marker was deployed at the site of biopsy. Post procedural mammogram demonstrates appropriate deployment of radiopaque clip marker. The patient tolerated the procedure well and left the department in stable condition. Pathology results are pending. IMPRESSION: Successful stereotactic core biopsy left breast with pathology results pending.
== END | disposition home or self-care (01) ==
LOC: RADMAMWWP 06:58
PROVIDERS: ATTEND Surgery
DX: C50.912 Malignant neoplasm of unspecified site of left female breast (principal)
CPT/HCPCS: 88305; 88342; 88341; 19081; A4648; J2001

== ENCOUNTER 2021-10-06 09:32 | Day surgery (SDC) | payer OTHER ==
[2021-10-04 14:25] VITALS: BMI 34.0
[~2021-10-06 09:32] MED LIST changes: +ACETAMINOPHEN TAB 500 MG TAB PO PRN; +HEPARIN SODIUM,PORCINE/PF 5,000 UNIT/0.5 ML SYRINGE SQ PRN; +Pre Op ABX Message 1 EACH MISC MISCELLANE ONE; -ceFAZolin IN SWFI 2 GM/20 ML SYRINGE IVP ONE
[2021-10-06] MEDS ORDERED: ONDANSETRON 4 MG/2 ML VIAL IVP ONE (09:55)
[2021-10-06] MEDS ORDERED: MIDAZOLAM 2 MG/2 ML VIAL IV PRN (09:55)
[2021-10-06] MEDS ORDERED: LIDOCAINE 1% (10MG/ML) FOR IV START INTRADERMA PRN (09:55)
[2021-10-06] MEDS ORDERED: ALPRAZolam 0.25 MG TAB ONE (09:59)
[2021-10-06] MEDS ORDERED: DEXAMETHASONE SOD PHOSPHATE 4 MG/ML 1 ML VIAL IV ONE (10:00)
[2021-10-06] MEDS ORDERED: LACTATED RINGERS 1,000 ML IV ONE ×2 (10:08→15:30)
[2021-10-06 10:17] LABS: Glucose,Whole Blood 112 mg/dL (75-99)
--- NOTE | 2021-10-06 10:52 | P.GSHP ---
History of Present Illness H&P Date: 10/06/21 Chief Complaint: Left breast cancer 61-year-old female known to our service. History of right-sided breast cancer 18 years ago. Underwent radiation after breast conservation and tamoxifen for 10 years. Recent mammogram shows 7 mm mass left breast. biopsy shows grade 1 ductal carcinoma. Recent genetics normal. Patient interested in breast conservation. Past Medical History Past Medical History: Cancer, Diabetes Mellitus, Hyperlipidemia, Hypertension, Musculoskeletal Disorder, Thyroid Disorder Additional Past Medical History / Comment(s): R breast cancer, colon cancer, chronic pain, anemia, migraines History of Any Multi-Drug Resistant Organisms: None Reported Past Surgical History: Bowel Resection, Breast Surgery, Cholecystectomy, Hysterectomy, Tubal Ligation, Uterine Ablation Additional Past Surgical History / Comment(s): R breast lumpectomy Past Anesthesia/Blood Transfusion Reactions: Motion Sickness, Postoperative Nausea & Vomiting (PONV) Past Psychological History: No Psychological Hx Reported Additional Psychological History / Comment(s): situational depression Smoking Status: Never smoker Past Alcohol Use History: None Reported Past Drug Use History: None Reported - Past Family History Mother Family Medical History: No Reported History Additional Family Medical History / Comment(s): Mother is healthy and is 84 yrs old. Father Family Medical History: Cancer Additional Family Medical History / Comment(s): Father had prostate cancer. He d/t complication with intubation/lung puncture per pt. Medications and Allergies Home Medications Medication Instructions Recorded Confirmed Type Levothyroxine Sodium [Synthroid] 75 mcg PO DAILY 06/30/14 10/04/21 History Metoprolol Tartrate [Lopressor] 50 mg PO DAILY 06/30/14 10/04/21 History metFORMIN HCL [Glucophage] 500 mg PO TID 06/30/14 10/04/21 History Ergocalciferol [Vitamin D2 50,000 unit PO MO 08/10/17 10/04/21 History (DRISDOL)] Mirabegron [Myrbetriq] 50 mg PO DAILY 08/10/17 10/04/21 History lisinopriL 20 mg PO BID 08/21/18 10/04/21 History Cyclobenzaprine [Flexeril] 10 mg PO HS 08/04/21 10/04/21 History Latanoprost/Pf [Latanoprost 0.005% 1 drop BOTH EYES HS 08/04/21 10/04/21 History Eye Drop] Meloxicam 15 mg PO DAILY 10/04/21 10/04/21 History Allergies Allergy/AdvReac Type Severity Reaction Status Date / Time Iodinated Contrast Media Allergy Rash/Hives Verified 10/04/21 14:09 [Iodinated Contrast- Oral and IV Dye] Surgical - Exam Vital Signs Temp Pulse Resp BP Pulse Ox 98.4 F 97 18 174/90 97 10/06/21 10:07 10/06/21 10:07 10/06/21 10:07 10/06/21 10:07 10/06/21 10:07 The patient's examination took place in the presence of a medical office staff animal anatomy teacher. Please refer to the patient's written chart for specific details as to who the animal anatomy teacher was in this particular case. Physical exam: General: Well-developed, well-nourished HEENT: Normocephalic, sclerae nonicteric Right breast: no masses, no adenopathy, prior scars noted Left breast: no masses, no adenopathy Abdomen: Nontender, nondistended Extremities: No edema Neuro: Alert and oriented Results - Labs Abnormal Lab Results - Last 24 Hours (Table) 10/06/21 Range/Units 10:14 POC Glucose (mg/dL) 112 H (75-99) mg/dL Assessment and Plan (1) Breast cancer Narrative/Plan: We will proceed with left breast wire localization lumpectomy with sentinel lymp h node biopsy and injection at this time. Risks of bleeding, infection, scarring, possible need for further surgery, nerve injury, weakness, numbness, lymphedema reviewed. She understands and wishes to proceed. Current Visit: Yes Status: Acute Code(s): C50.919 - MALIGNANT NEOPLASM OF UNSP SITE OF UNSPECIFIED FEMALE BREAST SNOMED Code(s): 571920157
[2021-10-06] MEDS ORDERED: LIDOCAINE 1% INJ 10MG/ML (20 ML MDV) SQ ONE (11:28)
[2021-10-06 11:57] LABS: Basophils # (A) 0.1 k/uL (0-0.2); Basophils % (A) 1 %; Eosinophils # (A) 0.3 k/uL (0-0.7); Eosinophils % (A) 4 %; HCT 44.3 % (34.0-46.0); HGB 14.6 gm/dL (11.4-16.0); Lymphocytes # (A) 1.8 k/uL (1.0-4.8); Lymphocytes % (A) 29 %; MCH 29.8 pg (25.0-35.0); MCHC 32.8 g/dL (31.0-37.0); MCV 90.7 fL (80.0-100.0); Mean Platelet Volume 8.7; Monocytes # (A) 0.4 k/uL (0-1.0); Monocytes % (A) 7 %; Neutrophils # (A) 3.6 k/uL (1.3-7.7); Neutrophils % (A) 57 %; Platelet Count 216 k/uL (150-450); RBC 4.89 m/uL (3.80-5.40); RDW 13.8 % (11.5-15.5); WBC 6.2 k/uL (3.8-10.6)
--- NOTE | 2021-10-06 12:01 | NM ---
EXAMINATION TYPE: NM sentinel node injection DATE OF EXAM: 10/06/2021 COMPARISON: NONE HISTORY: Left-sided breast cancer. TECHNIQUE AND FINDINGS: The procedure of sentinel lymph node injection was explained to the patient. The benefits, alternatives, and risks were discussed. An informed consent was then obtained. Overlying skin is cleaned with sterile alcohol. Following this, 503 uCi Tc99m Tilmanocept was inject ed in the upper outer aspect of the left nipple intradermally. The patient tolerated the procedure well without any immediate complication. The patient was kept in the radiology department for short stay after the procedure and then taken to surgery for surgical p rocedure what is presumed intraoperative gamma probe will be used for sentinel lymph node detection. IMPRESSION: Left breast radiotracer injection for sentinel node localization as above.
[2021-10-06 12:10] LABS: Albumin 3.8 g/dL (3.5-5.0); Calcium 9.2 mg/dL (8.4-10.2); Potassium 4.2 mmol/L (3.5-5.1); Total Protein 7.1 g/dL (6.3-8.2)
[2021-10-06] MEDS ORDERED: SUCCINYLCHOLINE CHLORIDE 100 MG/5 ML SYR IV ONE (12:25)
[2021-10-06] MEDS ORDERED: PHENYLEPHRINE-0.9% NACL SYG 1,000 MCG/10 ML SYRINGE ONE (12:25)
[2021-10-06] MEDS ORDERED: diphenhydrAMINE 50 MG/ML 1 ML VIAL ONE (12:25)
[2021-10-06] MEDS ORDERED: ePHEDrine 50 MG/ML 1 ML VIAL ONE (12:25)
[2021-10-06] MEDS ORDERED: fentaNYL (PF) 50 MCG/ML 2 ML AMP ONE (12:25)
[2021-10-06] MEDS ORDERED: PROPOFOL 10 MG/ML 20 ML VIAL IV ONE (12:25)
[2021-10-06] MEDS ORDERED: LIDOCAINE 2% INJ 20 MG/ML (2 ML VIAL) ONE (12:25)
[2021-10-06] MEDS ORDERED: MIDAZOLAM 2 MG/2 ML VIAL ONE (12:25)
[2021-10-06] MEDS ORDERED: ceFAZolin 1,000 MG VIAL IVPB ONE (12:30)
[2021-10-06] MEDS ORDERED: BUPIVACAIN-EPI 0.25%-1:200,000 30 ML VIAL SQ ONE (12:30)
[2021-10-06] MEDS ORDERED: METHYLENE BLUE 10 MG/ML (10 ML VIAL) MISCELLANE ONE (12:30)
[2021-10-06] MEDS ORDERED: NALOXONE 0.4 MG/ML 1 ML VIAL IV PRN (14:18)
[2021-10-06] MEDS ORDERED: HYDROcodone/APAP 5-325MG 1 EACH TAB PO PRN (14:18)
[2021-10-06 14:27] VITALS: TEMP 97.2
--- NOTE | 2021-10-06 14:28 | P.OP ---
Date of Procedure: 10/06/21 Procedure(s) Performed: PREOPERATIVE DIAGNOSIS: Left breast cancer POSTOPERATIVE DIAGNOSIS: Same PROCEDURE: Left Breast wire localization lumpectomy with sentinel lymph node biopsy SURGEON: Marcelina EBL: 20 mL ANESTHESIA: General COMPLICATIONS: None OPERATIVE PROCEDURE: Patient was placed on the operating room table in the supine position. 2 mL of methylene blue was injected into the subareolar space. The breast was then massaged for 5 minutes. The breast was prepped and draped in usual sterile fashion. The right axilla was addressed at that time. The hot spot in the right axilla was identified. A small curvilinear incision was made using the scalpel. Dissection down through the subcutaneous tissues took place using electrocautery. Using the neoprobe I quickly identified a large lymph node measuring approximately 3 x 1.5 cm. This did not appear indurated however given the size I sent this for frozen section and that was okay. There was additional radioactive tissues seen superficial to this that honestly appeared more fatty in nature but had significant radioactive tracer readings. These were sent for permanent sectioning as left breast sentinel lymph nodes. No residual significant radioactivity was seen. There was no blue ink that made it to the axilla. The area was inspected. No bleeding was seen. The subcutaneous tissues were closed using 3-0 Vicryl sutures. The skin was closed using 4-0 Monocryl sutures. The wire entrance site was then addressed. This was present at the 12:00 location. A curvilinear incision was made inferior to the wire entrance site. The saphenous tissues were dissected until the wire was identified and brought out through the incision. I followed the wire down into the breast tissue. An adequate lumpectomy specimen then took place around the wire. Margins of 1.5-2 cm worth attempted to be achieved. The specimen was then painted the appropriate 6 colors. Clips were used to identify the lumpectomy cavity. The clip was confirmed to be within the lumpectomy specimen by radiology. The subcutaneous tissues were closed using 3-0 Vicryl sutures. The skin was closed using a running 4-0 Monocryl stitch. Skin glue was then applied. DISPOSITION: Stable to recovery room
[2021-10-06] MEDS: HYDROmorphone 0.5 MG/0.5 ML SYRINGE IVP PRN ×2 (15:09→15:26)
--- NOTE | 2021-10-06 15:27 | MM ---
EXAMINATION TYPE: MG pre op needle loc LT, MG surgical specimen LT DATE OF EXAM: 10/06/2021 COMPARISON: Stereotactic guided core biopsy August 15, 2021 and older mammograms. CLINICAL HISTORY: History of left-sided breast cancer nearly 20 years ago with new left-sided breast cancer on biopsy August 15 TECHNIQUE: Needle localization with wire placement and surgical excision of area of concern in the le ft breast. FINDINGS: The procedure of needle localization with wire placement and than surgical excision was exp lained to the patient. Benefits, alternatives, and risks were discussed. An informed consent was th en obtained. The shortest pathway for procedure was chosen. Shortest pathway was cranial to caudal approach. The overlying skin was prepped and draped in usual sterile fashion. Lidocaine buffered with bicarbonate was used as anesthetic into the skin and subcutaneous tissue up to the level of area of concern. A 7 cm needle was used. It was placed via a cranial caudal approach under mammographic guidance. Subse quent 90 degrees mammogram show the needle to be in satisfactory position relative to the targeted ar ea. At this point, wire was placed and the needle was withdrawn. The wire was fixed to patient's sk in. Images were marked for surgeon. The patient tolerated the procedure well without any immediate complication. The patient was kept in the radiology department for short stay after the procedure and then taken to surgery for surgical e xcision. Targeted biopsy clip and wire are identified in specimen mammogram. The patient was kept in hospital for short stay after the procedure and then discharged home in stable condition. IMPRESSION: Successful, uncomplicated needle localization with wire placement and surgical excision o f targeted biopsy clip in the left breast, full pathology results to follow.
[2021-10-06] MEDS ORDERED: KETOROLAC 15 MG/ML 1 ML VIAL ONE (17:20)
[2021-10-06] MEDS: LACTATED RINGERS 1,000 ML IV SCH ×2 (17:40→18:25)
[2021-10-06 18:30] VITALS: BP 99/63; PULSE 90; RESP 20
== END 2021-10-06 18:45 | disposition home or self-care (01) ==
LOC: OR 09:32
PROVIDERS: ATTEND Surgery
DX: C50.912 Malignant neoplasm of unspecified site of left female breast (principal); I10 Essential (primary) hypertension; E78.5 Hyperlipidemia, unspecified; J45.909 Unspecified asthma, uncomplicated; E11.9 Type 2 diabetes mellitus without complications; Z79.84 Long term (current) use of oral hypoglycemic drugs; Z79.899 Other long term (current) drug therapy; Z79.1 Long term (current) use of non-steroidal anti-inflammatories (NSAID); Z85.038 Personal history of other malignant neoplasm of large intestine; Z85.3 Personal history of malignant neoplasm of breast; Z88.8 Allergy status to other drugs, medicaments and biological substances; Z90.49 Acquired absence of other specified parts of digestive tract
CPT/HCPCS: 19281; 38792; 80053; 85025; 76098; C1819; A9520; J2250; J1200; J1100; J2405; J0690; J2001 ×2; Q9968; J3010; J1885; J2370; J0330; J2704; J1170; J1790; J1644

== ENCOUNTER → 2021-10-28 | Outpatient (CLI) | payer OTHER ==
--- NOTE | 2021-10-31 08:34 | BD ---
EXAMINATION TYPE: Axial Bone Density DATE OF EXAM: 10/28/2021 COMPARISON: NONE CLINICAL HISTORY: 61 years year old Female. ICD-10 CODE: Z78.0 Post menopausal without HRT, M85.9 Os teopenia, Z03.89 Height: 61 Weight: 184 FRAX RISK QUESTIONS: Alcohol (3 or more units per day): NO Family History (Parent hip fracture): NO Glucocorticoids (More than 3mos): NO History of Fracture in Adulthood: NO Secondary Osteoporosis: 1. Type 1 Diabetes: NO 2. Hyperthyroidism: YES 3. Menopause before 45: YES 4. Malnutrition: NO 5. Chronic liver disease: NO Rheumatoid Arthritis: NO Current Tobacco Use: NO RISK FACTORS HISTORY OF: Hip Fracture (Right/Left): NO Spine Fracture: NO History of Wrist Fracture: RT WRIST When: AGE 21 Surgery to Spine/Hip(right/left)/Wrist (right/left): NO Family History of Osteoporosis: NO Active: NO Diet low in dairy products/other sources of calcium: YES Postmenopausal woman: YES Take estrogen and/or progesterone medications: NO Lost more than 2 inches in height since high school: NO Frequent falls: NO Poor Health: NO Hyperparathyroidism: YES Adrenal Insufficiency: NO MEDICATIONS: Prednisone or other steroids: NO Thyroid Medications: YES Which medication ? NAME OF MEDICATION How Lon YEARS Osteoporosis Medications: NO Additional Medications: BP MEDS, VIT D, Additional History: EXAM MEASUREMENTS: Bone mineral densitometry was performed using the [employer] System. Bone mineral density as measured about the Lumbar spine is: ----- L1-L4(G/cm2): 1.263 T Score Values are as follows: ----- L1: 0.2 ----- L2: 0.6 ----- L3: 0.6 ----- L4: 1.3 ----- L1-L4: 0.7 BASELINE STUDY Bone mineral density about the R hip (g/cm2): 0.839 Bone mineral density about the L hip (g/cm2): 0.867 T Score values are as follows: -----R Neck: -1.2 -----L Neck: -1.4 -----R Total: -0.2 -----L Total: 0.1 BASELINE STUDY FRAX%s: The graph provided illustrates a 13.1% chance for a major osteoporotic fx and a 1.1% chance f or the hips probability for fx in 10 years time. IMPRESSION: Osteopenia (T Score between -2.5 and -1). There is slightly increased risk of fracture and the patient may be considered for treatment. Re-Screen 2-5 years. NOTE: T-SCORE=SD OF THE YOUNG ADULT MEAN.
== END | disposition home or self-care (01) ==
LOC: RADBDWWP 13:19
PROVIDERS: ATTEND Internal Medicine Hematology & Oncology
DX: Z13.820 Encounter for screening for osteoporosis (principal); M85.851 Other specified disorders of bone density and structure, right thigh; M85.852 Other specified disorders of bone density and structure, left thigh; Z78.0 Asymptomatic menopausal state
CPT/HCPCS: 77080

== ENCOUNTER → 2022-10-24 | Outpatient (CLI) | payer OTHER ==
--- NOTE | 2022-10-25 09:47 | CT ---
EXAMINATION TYPE: CT abdomen pelvis w con DATE OF EXAM: 10/24/2022 COMPARISON: 08/21/2018 HISTORY: 62-year-old female with repeated falls, Follow up, hx of colon ca. TECHNIQUE: Contiguous axial scanning of the abdomen and pelvis following administration of 100 ml Omn ipaque 300 IV contrast. Delayed images through the kidneys and coronal/sagittal reconstructions perf ormed. CT DLP: 1365.2 mGycm Automated exposure control for dose reduction was used. FINDINGS: Heart and lungs are normal in size without pericardial effusion. Some hazy reticular change s in the lower lungs, unchanged from 2013 suggesting chronic changes. No pleural effusion. No focal liver lesion or biliary ductal dilatation. Portal venous system is patent. Cholecystectomy c lips. Adrenal glands, spleen with hilar splenule, pancreas appear within normal limits. A couple tiny cortical hypodensities in the right kidney measuring up to 7 mm small for accurate CT c haracterization, likely tiny cortical cysts. There is a 1.3 cm stone within the left renal pelvis. Mild urothelial thickening is demonstrated. 4 m m nonobstructive left lower pole renal calculus. There is a heterogeneously enhancing 2.9 cm cortical mass lateral upper midpole left kidney which is new from 2013 highly suggestive of an RCC. Mild atherosclerotic calcifications infrarenal aorta and iliac arteries. No dilated small bowel, fluid, or free air. No mesenteric or retroperitoneal lymphadenopathy. There is mild to moderate stool in the right side of the abdomen. No pericolonic inflammatory change. Bladder partially distended. Uterus surgically absent. Numerous pelvic phleboliths. Mild pelvic floor relaxation. Suspect small bilateral place. Hypertrophic facet arthropathy mid to lower lumbar spine. There is L5 sacralization. Degenerative gra de 1 anterolisthesis L4-L5. IMPRESSION: 1. FINDINGS HIGHLY SUGGESTIVE OF A NEW 2.9 CM RCC LATERAL UPPER TO MID POLE OF THE LEFT KIDNEY. [facility]. 2. A 1.3 CM STONE IN THE LEFT RENAL COLLECTING SYSTEM. SOME MILD UROTHELIAL THICKENING IS DEMONSTRATE D, LIKELY ASSOCIATED IRRITATION/INFLAMMATION. CORRELATE TO EXCLUDE URINARY TRACT INFECTION. NO HYDRON EPHROSIS.
== END | disposition home or self-care (01) ==
LOC: RADCTMAIN 14:17
PROVIDERS: ATTEND Family Medicine
DX: N20.0 Calculus of kidney (principal); R63.4 Abnormal weight loss; Z85.3 Personal history of malignant neoplasm of breast; Z85.038 Personal history of other malignant neoplasm of large intestine
CPT/HCPCS: 82565; 84520; 74177; 36415; Q9967

== ENCOUNTER → 2022-11-16 | Outpatient (CLI) | payer OTHER ==
[2022-11-16 21:34] LABS: HCT 49.4 % (37.2-46.3); HGB 16.1 d/dL (12.0-15.0); MCH 29.5 pg (27.0-32.0); MCHC 32.6 d/dL (32.0-37.0); MCV 90.5 FL (80.0-97.0); Mean Platelet Volume 11.4 FL (9.5-12.2); NRBC Per 100 WBC 0 X 10*3/uL (0.00-0.01); Platelet Count 304 X 10*3/uL (140-440); RBC 5.46 X 10*6/uL (4.10-5.20); RDW 14.6 % (11.5-14.5)
[2022-11-16 21:35] LABS: Basophils # (A) 0.04 X 10*3/uL (0.00-0.10); Basophils % (A) 0.6 %; Eosinophils # (A) 0.47 X 10*3/uL (0.04-0.35); Eosinophils % (A) 6.7 %; Lymphocytes # (A) 1.49 X 10*3/uL (0.90-5.00); Lymphocytes % (A) 21.3 %; Monocytes # (A) 0.98 X 10*3/uL (0.20-1.00); Neutrophils # (A) 3.96 X 10*3/uL (1.80-7.70); Neutrophils % (A) 56.5 %
[2022-11-16 22:12] LABS: BUN/Creat Ratio 16.08 Ratio (12.00-20.00); Blood Urea Nitrogen 20.9 mg/dL (9.0-27.0); Calcium 9.9 mg/dL (8.7-10.3); Carbon Dioxide 21.5 mmol/L (21.6-31.8); Chloride 102 mmol/L (96-109); Glucose 142 mg/dL (70-110); Potassium 4.7 mmol/L (3.5-5.5); Sodium 139 mmol/L (135-145)
[2022-11-16 23:57] LABS: Appearance,Urine Turbid (Clear); Bacteria,Urine 1+ (None Seen); Bilirubin,Urine Small (Negative); Blood,Urine Large (Negative); Color,Urine Yellow (Yellow); Ketones,Urine 15 (Negative); Nitrite,Urine Positive (Negative); PH, Urine 6.5 (4.0-8.0); Specific Gravity,Urine 1.025 (1.001-1.030); Urobilinogen,Urine 0.2 (>1.0)
== END | disposition home or self-care (01) ==
LOC: LABPAT 13:05
PROVIDERS: ATTEND Urology
DX: Z01.812 Encounter for preprocedural laboratory examination (principal); N20.0 Calculus of kidney
CPT/HCPCS: 80048; 81001; 85025; 87086

== ENCOUNTER 2022-11-21 10:48 | Day surgery (SDC) | payer OTHER ==
[2022-11-17 08:49] VITALS: BMI 29.7
[~2022-11-21 10:48] MED LIST changes: -ACETAMINOPHEN TAB 500 MG TAB PO PRN; +DEXAMETHASONE SOD PHOSPHATE 4 MG/ML 1 ML VIAL IV ONE; -HEPARIN SODIUM,PORCINE/PF 5,000 UNIT/0.5 ML SYRINGE SQ PRN; +LACTATED RINGERS 1,000 ML IV SCH; -Pre Op ABX Message 1 EACH MISC MISCELLANE ONE
--- NOTE | 2022-11-21 11:25 | P.HPIHPCON ---
History of Present Illness H&P Date: 11/21/22 Chief Complaint: Left renal stone This is a 62-year-old female with history of a 1.3 cm left sided renal pelvis stone. She is symptomatic from her stone. Of note she also has a left-sided renal mass. Discussed given her symptoms and the dilation of the collecting system from the stone I recommend addressing the stone after addressing the stone will proceed with excision of the mass. Discussed with her the option of left-sided ureteroscopy with holmium laser. Discussed the risk of bleeding, infection, injury to the ureter. Risk of anesthesia was also discussed with her. She understood all the risk and agreed to proceed Consent for Procedure: I have explained the operation/procedure to the patient, including the risks, benefits, side effects, alternative therapies (including not receiving the proposed treatment or service), the likelihood of the patient achieving his/her goals, and potential recuperation problems for the procedure/sedation/analgesia, as well as any blood products, if indicated. I also explained to the patient the risks, benefits and side effects of the alternatives, as well as the risks related to not receiving the proposed procedure, care, treatment, or services. Past Medical History Past Medical History: Cancer, Diabetes Mellitus, Hyperlipidemia, Hypertension, Musculoskeletal Disorder, Thyroid Disorder Additional Past Medical History / Comment(s): R/L breast cancer, colon cancer, chronic pain, anemia, migraines, KIDNEY STONES History of Any Multi-Drug Resistant Organisms: None Reported Past Surgical History: Bowel Resection, Breast Surgery, Cholecystectomy, Hysterectomy, Tubal Ligation, Uterine Ablation Additional Past Surgical History / Comment(s): RL breast lumpectomy, COLONOSCOPY Past Anesthesia/Blood Transfusion Reactions: Motion Sickness, Postoperative Nausea & Vomiting (PONV) Smoking Status: Never smoker - Past Family History Mother Family Medical History: No Reported History Additional Family Medical History / Comment(s): Mother is healthy and is 84 yrs old. Father Family Medical History: Cancer Additional Family Medical History / Comment(s): Father had prostate cancer. He d/t complication with intubation/lung puncture per pt. Medications and Allergies Home Medications Medication Instructions Recorded Confirmed Type Levothyroxine Sodium [Synthroid] 75 mcg PO DAILY 06/30/14 11/17/22 History Metoprolol Tartrate [Lopressor] 50 mg PO DAILY 06/30/14 11/17/22 History metFORMIN HCL [Glucophage] 500 mg PO TID 06/30/14 11/17/22 History lisinopriL 20 mg PO BID 08/21/18 11/17/22 History Cyclobenzaprine [Flexeril] 10 mg PO HS 08/04/21 11/17/22 History Latanoprost/Pf [Latanoprost 0.005% 1 drop BOTH EYES HS 08/04/21 11/17/22 History Eye Drop] Meloxicam 15 mg PO DAILY 10/04/21 11/17/22 History Exemestane [Aromasin] 25 mg PO DAILY 11/17/22 11/17/22 History Ketorolac [Toradol] 10 mg PO Q6HR PRN 11/17/22 11/17/22 History Allergies Allergy/AdvReac Type Severity Reaction Status Date / Time Iodinated Contrast Media Allergy Rash/Hives Verified 11/17/22 08:36 [Iodinated Contrast- Oral and IV Dye] Surgical - Exam - General no distress, moderate pain - Eyes no normal ocular movement, no pale - ENT normal nares, normal mucosa - Respiratory normal expansion, normal respiratory effort - Abdomen Abdomen: soft, non tender Assessment and Plan Assessment: OR for left-sided ureteroscopy, holmium laser lithotripsy, stone basketing and stent insertion
--- NOTE | 2022-11-21 11:32 | XR ---
EXAMINATION TYPE: XR KUB DATE OF EXAM: 11/21/2022 COMPARISON: CT 10/24/2022 HISTORY: Chest pain with renal stones TECHNIQUE: One view abdominal series FINDINGS: The osseous structures are intact. The bowel gas pattern is nonspecific. Left kidney: There is a large renal pelvic calcification measuring a maximal dimension of 15 mm. Ther e is a least two additional calcifications overlying the lower pole, the larger measuring 4 mm. Surgical changes in the right upper quadrant. No definite calcifications overlying the right renal outline which is partially aerated. Within the pelvis there is a vascular phleboliths. Arthropathy of the hips. Degenerative change lower lumbar spine.. IMPRESSION: 1. 15 mm left renal pelvic calcification with lower pole 4 mm calculus. 2. No definite right renal calculi..
[2022-11-21 12:00] LABS: Glucose,Whole Blood 138 mg/dL (70-110)
[2022-11-21] MEDS ORDERED: ONDANSETRON 4 MG/2 ML VIAL IVP ONE (12:01)
[2022-11-21] MEDS ORDERED: ONDANSETRON 4 MG/2 ML VIAL ONE (12:02)
[2022-11-21] MEDS ORDERED: PROPOFOL 10 MG/ML 20 ML VIAL IV ONE (13:05)
[2022-11-21] MEDS ORDERED: ePHEDrine 50 MG/ML 1 ML VIAL ONE (13:05)
[2022-11-21] MEDS ORDERED: NEOSTIGMINE 1 MG/ML 10 ML VIAL ONE (13:05)
[2022-11-21] MEDS ORDERED: ROCURONIUM 10 MG/ML (5 ML VIAL) IV ONE (13:05)
[2022-11-21] MEDS ORDERED: GLYCOPYRROLATE 0.2 MG/ML 2 ML VIAL ONE (13:05)
[2022-11-21] MEDS ORDERED: SUCCINYLCHOLINE CHLORIDE 200 MG/10 ML VIAL IV ONE (13:05)
[2022-11-21] MEDS ORDERED: fentaNYL (PF) 50 MCG/ML 2 ML AMP ONE (13:05)
[2022-11-21] MEDS ORDERED: PHENYLEPHRINE-0.9% NACL SYG 1,000 MCG/10 ML SYRINGE ONE (13:05)
[2022-11-21] MEDS ORDERED: MIDAZOLAM 2 MG/2 ML VIAL ONE (13:05)
[2022-11-21] MEDS ORDERED: LIDOCAINE 2% INJ 20 MG/ML (2 ML VIAL) ONE (13:05)
--- NOTE | 2022-11-21 14:33 | P.OP ---
Date of Procedure: 11/21/22 Preoperative Diagnosis: Left renal stone Postoperative Diagnosis: Same Procedure(s) Performed: Cystoscopy, left ureteroscopy, holmium laser lithotripsy, stone basketing and stent insertion Implants: 4.8 Fr X 24 cm stent Anesthesia: ARCHANA Surgeon: Gallito Norris Estimated Blood Loss (ml): 5 Pathology: other (left renal stone) Condition: stable Disposition: PACU Indications for Procedure: This is a 62-year-old female with history of a 1.3 cm left sided renal pelvis stone. She is symptomatic from her stone. Of note she also has a left-sided renal mass. Discussed given her symptoms and the dilation of the collecting system from the stone I recommend addressing the stone after addressing the stone will proceed with excision of the mass. Discussed with her the option of left-sided ureteroscopy with holmium laser. Discussed the risk of bleeding, infection, injury to the ureter. Risk of anesthesia was also discussed with her. She understood all the risk and agreed to proceed Operative Findings: Large stone within the left renal pelvis Description of Procedure: Patient brought to the operating room, general anesthesia was induced. She was prepped and draped in sterile fashion and placed in dorsal lithotomy position. Cystoscopy fitted with 21-Wallisian sheath was inserted per urethra, cystoscopy was performed which showed no abnormality within the bladder. Attention was then carried to the left ureteral orifice was intubated with a sensor wire. Next under fluoroscopy, a 1214 Wallisian access sheath was passed over the wire into the proximal ureter. Next a flexible ureteroscope was inserted through the access sheath, renoscopy was performed which showed a large stone within the renal pelvis. Using the holmium laser the stone was dusted, sizable fragment was removed and sent for analysis. Repeat renoscopy showed no sizable fragments or injury to the kidney, there was a small radiopaque density seen within the lower pole, I attempted to visualize it using the flexible ureteroscope but the calcification did not appear to be within the calyces. At this time pullback ureteroscopy was performed which showed no injury to the ureter or any ureteral stones, as ureteroscope was withdrawn and a sensor wire was advanced through. Next a ureteral stent was passed over the wire, the proximal curl was visualized on fluoroscopy and the distal curl was visualized using the cystoscope. The bladder was emptied at the end of the case. Patient tolerated procedure well was taken to recovery in stable condition
[2022-11-21 14:35] VITALS: TEMP 97.7
[2022-11-21 14:46] LABS: Glucose,Whole Blood 112 mg/dL (70-110)
[2022-11-21] MEDS: HYDROmorphone 0.5 MG/0.5 ML SYRINGE IVP PRN ×2 (14:54→15:05)
[2022-11-21] MEDS ORDERED: LACTATED RINGERS 1,000 ML IV ONE ×2 (15:00)
--- NOTE | 2022-11-21 15:10 | FL ---
EXAMINATION TYPE: FL guidance operating room DATE OF EXAM: 11/21/2022 HISTORY: Fluoroscopy time Total dose area product (DAP) in uGy*m?, mGy*cm? (or similar): 26 seconds IMPRESSION: 1. Fluoroscopy time.
[2022-11-21] MEDS ORDERED: KETOROLAC 15 MG/ML 1 ML VIAL IVP ONE (15:15)
[2022-11-21 15:52] VITALS: RESP 20
[2022-11-21 16:37] VITALS: BP 123/70; PULSE 78
== END 2022-11-21 17:20 ==
LOC: OR 10:48
PROVIDERS: ATTEND Urology
DX: N20.0 Calculus of kidney (principal); E11.9 Type 2 diabetes mellitus without complications; I10 Essential (primary) hypertension; E78.5 Hyperlipidemia, unspecified; E07.9 Disorder of thyroid, unspecified; D64.9 Anemia, unspecified; Z85.3 Personal history of malignant neoplasm of breast; G89.29 Other chronic pain; Z90.49 Acquired absence of other specified parts of digestive tract; Z90.710 Acquired absence of both cervix and uterus; Z98.51 Tubal ligation status; Z98.890 Other specified postprocedural states; Z80.42 Family history of malignant neoplasm of prostate; Z79.899 Other long term (current) drug therapy
CPT/HCPCS: 93005; 82365; 74018; 52356; C1769; J2250; J0330; J1100; J2710; J0690; J2405; J3010; J1885; J2370; J2704; J1170; J2001

== ENCOUNTER 2022-11-25 19:35 | Emergency (ER) | payer OTHER ==
[2022-11-25 19:54] VITALS: TEMP 97.8
[2022-11-25] MEDS ORDERED: KETOROLAC 15 MG/ML 1 ML VIAL IVP STA (20:17)
[2022-11-25 21:27] LABS: African American GFR (CKD) 67 (>60 ml/min/1.73 sqM); Anion Gap 6 mmol/L; Blood Urea Nitrogen 25 mg/dL (7-17); Calcium 10.1 mg/dL (8.4-10.2); Carbon Dioxide 28 mmol/L (22-30); Chloride 105 mmol/L (98-107); Glucose 92 mg/dL (74-99); Non-African American GFR(CKD) 58 (>60 ml/min/1.73 sqM); Potassium 4.7 mmol/L (3.5-5.1); Sodium 139 mmol/L (137-145)
[2022-11-25 21:53] LABS: Bacteria,Urine Rare /hpf; Mucus,Urine Rare /hpf; Squamous Epithelial Cell,Urine 2 /hpf (0-4)
[2022-11-25 22:02] VITALS: BP 169/96; PULSE 76; RESP 15
[2022-11-25 22:13] LABS: Appearance,Urine Cloudy (Clear); Color,Urine Dark Red; WBC,Urine 100 /hpf (0-5)
[2022-11-25 22:14] LABS: RBC,Urine >182 /hpf (0-5)
--- NOTE | 2022-11-25 22:19 | XR ---
EXAMINATION TYPE: XR KUB DATE OF EXAM: 11/25/2022 COMPARISON: 11-21-2022 INDICATION: Renal stone with stent TECHNIQUE: Single view abdomen upright view FINDINGS: Normal colonic bowel gas is present. There is an air-fluid level within stomach. Left ureteral stent is present. Psoas margins are normal. No organomegaly is present. IMPRESSION: 1. Left ureteral stent.
--- NOTE | 2022-11-25 22:58 | ED ---
Female Urogenital HPI - General Chief complaint: Urogenital Stated complaint: Post op complication Time Seen by Provider: 11/25/22 19:58 Source: patient Mode of arrival: ambulatory Limitations: no limitations - History of Present Illness Initial comments: 62-year-old female presenting with chief complaint of hematuria. Patient had lithotripsy and stent placed on 11/21. She states that her flank pain from her existing kidney stone had been improving. Today she is having a re-flare of this pain as well as some pain with urination. No fever, chills, nausea, vomiting. - Related Data Home Medications Medication Instructions Recorded Confirmed Levothyroxine Sodium [Synthroid] 75 mcg PO DAILY 06/30/14 11/25/22 Metoprolol Tartrate [Lopressor] 50 mg PO DAILY 06/30/14 11/25/22 metFORMIN HCL [Glucophage] 500 mg PO TID 06/30/14 11/25/22 lisinopriL 20 mg PO BID 08/21/18 11/25/22 Cyclobenzaprine [Flexeril] 10 mg PO HS 08/04/21 11/25/22 Latanoprost/Pf [Latanoprost 0.005% 1 drop BOTH EYES HS 08/04/21 11/25/22 Eye Drop] Meloxicam 15 mg PO DAILY 10/04/21 11/25/22 Exemestane [Aromasin] 25 mg PO DAILY 11/17/22 11/25/22 Ketorolac [Toradol] 10 mg PO Q6HR PRN 11/17/22 11/25/22 Previous Rx's Medication Instructions Recorded Cephalexin [Keflex] 500 mg PO Q8HR #15 cap 11/21/22 Tamsulosin [Flomax] 0.4 mg PO DAILY #10 cap 11/21/22 Cephalexin [Keflex] 500 mg PO Q12HR 5 Days #10 cap 11/26/22 Allergies Allergy/AdvReac Type Severity Reaction Status Date / Time Iodinated Contrast Media Allergy Rash/Hives Verified 11/21/22 11:45 [Iodinated Contrast- Oral and IV Dye] Review of Systems ROS Statement: Those systems with pertinent positive or pertinent negative responses have been documented in the HPI. ROS Other: All systems not noted in ROS Statement are negative. Past Medical History Past Medical History: Cancer, Diabetes Mellitus, Hyperlipidemia, Hypertension, Musculoskeletal Disorder, Thyroid Disorder Additional Past Medical History / Comment(s): R/L breast cancer, colon cancer, chronic pain, anemia, migraines, KIDNEY STONES History of Any Multi-Drug Resistant Organisms: None Reported Past Surgical History: Bowel Resection, Breast Surgery, Cholecystectomy, Hysterectomy, Tubal Ligation, Uterine Ablation Additional Past Surgical History / Comment(s): RL breast lumpectomy, COLONOSCOPY Past Anesthesia/Blood Transfusion Reactions: Motion Sickness, Postoperative Nausea & Vomiting (PONV) Past Psychological History: No Psychological Hx Reported Smoking Status: Never smoker - Past Family History Mother Family Medical History: No Reported History Additional Family Medical History / Comment(s): Mother is healthy and is 84 yrs old. Father Family Medical History: Cancer Additional Family Medical History / Comment(s): Father had prostate cancer. He d/t complication with intubation/lung puncture per pt. General Exam Limitations: no limitations General appearance: alert, in no apparent distress Head exam: Present: atraumatic, normocephalic, normal inspection Eye exam: Present: normal appearance, EOMI. Absent: scleral icterus, periorbital swelling Neck exam: Present: normal inspection, full ROM Respiratory exam: Present: normal lung sounds bilaterally. Absent: respiratory distress, wheezes, rales, rhonchi, stridor Cardiovascular Exam: Present: regular rate, normal rhythm, normal heart sounds. Absent: systolic murmur, diastolic murmur, rubs, gallop, clicks GI/Abdominal exam: Present: soft, tenderness. Absent: distended, guarding, r ebound, rigid Back exam: Present: normal inspection. Absent: CVA tenderness (R), CVA tenderness (L) Neurological exam: Present: alert, oriented X3, CN II-XII intact Psychiatric exam: Present: normal affect, normal mood Skin exam: Present: warm, dry, intact, normal color. Absent: rash Course Vital Signs 11/25/22 11/25/22 19:51 21:58 Temperature 97.8 F Pulse Rate 79 76 Respiratory 16 15 Rate Blood Pressure 163/93 169/96 O2 Sat by Pulse 97 97 Oximetry Medical Decision Making - Medical Decision Making Was pt. sent in by a medical professional or institution (, PA, INSTRUCTOR WARPER, urgent care, hospital, or fpc...) When possible be specific @ -No Did you speak to anyone other than the patient for history (EMS, parent, family, police, friend...)? What history was obtained from this source @ -No Did you review nursing and triage notes (agree or disagree)? Why? @ -I reviewed and agree with nursing and triage notes Were old charts reviewed (outside hosp., previous admission, EMS record, old EKG, old radiological studies, urgent care reports/EKG's, fpc records)? Report findings @ -No old charts were reviewed Differential Diagnosis (chest pain, altered mental status, abdominal pain women, abdominal pain men, vaginal bleeding, weakness, fever, dyspnea, syncope, headache, dizziness, GI bleed, back pain, seizure, CVA, palpatations, mental health, musculoskeletal)? @ -Differential includes movement of kidney stone and stent, malignancy, infection, this is not an all inclusive list EKG interpreted by me (3pts min.). @ -As above X-rays interpreted by me (1pt min.). @ -KUB x-ray shows left ureteral stent CT interpreted by me (1pt min.). @ -None done U/S interpreted by me (1pt. min.). @ -None done What testing was considered but not performed or refused? (CT, X-rays, U/S, labs)? Why? @ -None What meds were considered but not given or refused? Why? @ -None Did you discuss the management of the patient with other professionals (professionals i.e. , PA, INSTRUCTOR WARPER, lab, RT, psych nurse, forensic social worker, vineyard worker, teacher, safety and security officer, case finisher)? Give summary @ -No Was smoking cessation discussed for >3mins.? @ -No Was critical care preformed (if so, how long)? @ -No Were there social determinants of health that impacted care today? How? (Homelessness, low income, unemployed, alcoholism, drug addiction, trans portation, low edu. Level, literacy, decrease access to med. care, detention, rehab)? @ -No Was there de-escalation of care discussed even if they declined (Discuss DNR or withdrawal of care, Hospice)? DNR status @ -No What co-morbidities impacted this encounter? (DM, HTN, Smoking, COPD, CAD, Cancer, CVA, ARF, Chemo, Hep., AIDS, mental health diagnosis, sleep apnea, morbid obesity)? @ -None Was patient admitted / discharged? Hospital course, mention meds given and route, prescriptions, significant lab abnormalities, going to OR and other pertinent info. @ -62-year-old female presenting with chief complaint of hematuria that started today. Patient had lithotripsy and stent placement performed on 11/21. BUN 25, likely due to hydration status. Urine shows greater than 182 RBCs with 100 WBCs, may be due to contamination urine is sent for culture. KUB x-ray shows left ureteral stent. Patient is likely experiencing bleeding from movement of kidney stone fragments. She is instructed to follow-up with her urologist. Follow-up with PCP. Report back to ER with any new or worsening symptoms. Discussed return parameters and answered all questions. Patient conveyed verbal understanding and agreed to the plan. I discussed this case in detail with my attending Dr. Elkins Undiagnosed new problem with uncertain prognosis? @ -No Drug Therapy requiring intensive monitoring for toxicity (Heparin, Nitro, Insulin, Cardizem)? @ -No Were any procedures done? @ -No Diagnosis/symptom? @ -Hematuria Acute, or Chronic, or Acute on Chronic? @ -Acute Uncomplicated (without systemic symptoms) or Complicated (systemic symptoms)? @ -Uncomplicated Side effects of treatment? @ -No Exacerbation, Progression, or Severe Exacerbation? @ -No Poses a threat to life or bodily function? How? (Chest pain, USA, VT, pneumonia, PE, COPD, DKA, ARF, appy, cholecystitis, CVA, Diverticulitis, Homicidal, Suicidal, threat to staff... and all critical care pts) @ -Low likelihood - Lab Data Result diagrams: 11/25/22 20:59 Lab Results 11/25/22 11/25/22 Range/Units 20:59 20:59 Sodium 139 (137-145) mmol/L Potassium 4.7 (3.5-5.1) mmol/L Chloride 105 (98-107) mmol/L Carbon Dioxide 28 (22-30) mmol/L Anion Gap 6 mmol/L BUN 25 H (7-17) mg/dL Creatinine 1.03 (0.52-1.04) mg/dL Est GFR (CKD-EPI)AfAm 67 (>60 ml/min/1.73 sqM) Est GFR (CKD-EPI)NonAf 58 (>60 ml/min/1.73 sqM) Glucose 92 (74-99) mg/dL Calcium 10.1 (8.4-10.2) mg/dL Urine Color Dark Red Urine Appearance Cloudy H (Clear) Urine RBC >182 H (0-5) /hpf Urine WBC 100 H (0-5) /hpf Ur Squamous Epith Cells 2 (0-4) /hpf Urine Bacteria Rare H (None) /hpf Urine Mucus Rare H (None) /hpf Disposition Clinical Impression: Hematuria Disposition: HOME SELF-CARE Condition: Good Instructions (If sedation given, give patient instructions): Hematuria (ED) Additional Instructions: Follow-up with PCP and urologist at scheduled appointment. Report back to ER with any new or worsening symptoms. Prescriptions: Cephalexin [Keflex] 500 mg PO Q12HR 5 Days #10 cap Is patient prescribed a controlled substance at d/c from ED?: No Referrals: Nichelle Juarez DO [Primary Care Provider] - 1-2 days Gallito Norris MD [STAFF PHYSICIAN] - 1-2 days Time of Disposition: 22:57
== END 2022-11-25 23:17 | disposition home or self-care (01) ==
LOC: EC 19:35
DX: R31.9 Hematuria, unspecified (principal); E11.9 Type 2 diabetes mellitus without complications; E78.5 Hyperlipidemia, unspecified; I10 Essential (primary) hypertension; E07.9 Disorder of thyroid, unspecified; Z91.041 Radiographic dye allergy status; Z79.890 Hormone replacement therapy; Z79.84 Long term (current) use of oral hypoglycemic drugs; Z79.899 Other long term (current) drug therapy
CPT/HCPCS: 36415; 80048; 81001; 87086; 74018; 99284; 96374; J1885

== ENCOUNTER → 2023-01-25 | Outpatient (CLI) | payer OTHER ==
--- NOTE | 2023-01-25 10:55 | MM ---
Reason for Exam: Follow-up at short interval from prior study. Last screening mammogram was performed 6 month(s) ago. Patient History: Menarche at age 11. First Full-Term at age 32. Late child-bearing (after 29). Hysterectomy at age 58. Postmenopausal. Breast cancer, age 61. Colorectal cancer, age 51. Currently using Tamoxifen, starting at age 61. 2003, Lumpectomy on the Right side. 10/06/2021, Lumpectomy on the Left side. Core Biopsy on the Right side. Core Biopsy on the Left side. 10/06/2021, Malignant Core Biopsy on the left side. 08/15/2021, Malignant Core Biopsy on the left side. 04/06/2004, Benign Stereotactic Core Biopsy on the left side. 04/06/2004, Benign Stereotactic Core Biopsy on the right side. 2021, Radiation Therapy on the left side. 2003, Radiation Therapy. Maternal aunt had breast cancer, age 75. Prior Study Comparison: 07/19/2021 Bilateral Screening Mammogram, [facility]. 07/22/2021 Left Diagnostic Mammogram, [facility]. 07/27/2022 Bilateral MG diagnostic mammo w CAD KENNY, [facility]. Tissue Density: Left: The breast tissue is heterogeneously dense. This may lower the sensitivity of mammography. Findings: Analyzed By CAD. Postoperative lumpectomy change and radiation therapy changes. Periareolar and retroareolar calcifications are less conspicuous following breast cleansing. His are likely artifactual on the original images. Six-month follow-up is recommended. Overall Assessment: Probably benign, BI-RAD 3 Management: Diagnostic Mammogram of both breasts in 6 months. . Results were given to the patient verbally at the time of exam. Patient should continue monthly self-breast exams. A clinical breast exam by your physician is recommended on an annual basis. This exam should not preclude additional follow-up of suspicious palpable abnormalities. Note on Claudette scores and lifetime risk: 1. A Claudette score greater than 3% is considered moderate risk. If this is the case, consider specialist referral to assess eligibility for a risk reducing agent. 2. If overall lifetime risk for the development of breast cancer is 20% or higher, the patient may qualify for future screening with alternating mammogram and breast MRI. Electronically signed and approved by: Giovani Thomson M.D. Radiologis
== END | disposition home or self-care (01) ==
LOC: RADMAMWWP 10:10
PROVIDERS: ATTEND Surgery
DX: R92.8 Other abnormal and inconclusive findings on diagnostic imaging of breast (principal); Z78.0 Asymptomatic menopausal state; Z80.3 Family history of malignant neoplasm of breast; Z85.3 Personal history of malignant neoplasm of breast; Z85.038 Personal history of other malignant neoplasm of large intestine
CPT/HCPCS: 77061; 77065

== ENCOUNTER → 2023-02-01 | Outpatient (CLI) | payer OTHER ==
[2023-02-01 10:55] LABS: Appearance,Urine Cloudy (Clear); Bilirubin,Urine Negative (Negative); Blood,Urine Trace (Negative); Color,Urine Yellow; Glucose,Urine (UA) Trace (Negative); Ketones,Urine Negative (Negative); Leukocyte Esterase,Urine Moderate (Negative); Mucus,Urine Many /hpf; Nitrite,Urine Negative (Negative); PH, Urine 5.5 (5.0-8.0); Protein,Urine Trace (Negative); RBC,Urine 3 /hpf (0-5); Squamous Epithelial Cell,Urine 19 /hpf (0-4); Urobilinogen,Urine <2.0 mg/dL (<2.0); WBC,Urine 57 /hpf (0-5)
[2023-02-01 15:00] LABS: HCT 47.4 % (37.2-46.3); HGB 15.4 d/dL (12.0-15.0); MCH 29.6 pg (27.0-32.0); MCHC 32.5 d/dL (32.0-37.0); Mean Platelet Volume 11.2 FL (9.5-12.2); NRBC Per 100 WBC 0 X 10*3/uL (0.00-0.01); Platelet Count 211 X 10*3/uL (140-440); RBC 5.21 X 10*6/uL (4.10-5.20); RDW 13.9 % (11.5-14.5); WBC 7.53 X 10*3/uL (4.50-10.00)
[2023-02-01 16:25] LABS: Blood Urea Nitrogen 14.8 mg/dL (9.0-27.0); Calcium 10.1 mg/dL (8.7-10.3); Carbon Dioxide 25.1 mmol/L (21.6-31.8); Chloride 103 mmol/L (96-109); Glucose 127 mg/dL (70-110); Potassium 4.3 mmol/L (3.5-5.5); Sodium 138 mmol/L (135-145)
--- NOTE | 2023-02-01 16:54 | XR ---
EXAMINATION TYPE: XR chest 2V DATE OF EXAM: 02/01/2023 10:32 AM COMPARISON: Chest radiographs from 08/21/2018 TECHNIQUE: XR chest 2V Frontal and lateral views of the chest. CLINICAL INDICATION:Female, 62 years old with history of Z01.818; FINDINGS: Lungs/Pleura: There is no evidence of pleural effusion, focal consolidation, or pneumothorax. Chroni c senescent parenchymal change. Pulmonary vascularity: Unremarkable. Heart/mediastinum: Cardiomediastinal silhouette is unremarkable. Musculoskeletal: No acute osseous pathology. Other: Surgical clips within both breasts and left axilla. IMPRESSION: No acute cardiopulmonary disease/process.
== END | disposition home or self-care (01) ==
LOC: LABPAT 09:33
PROVIDERS: ATTEND Urology
DX: Z01.812 Encounter for preprocedural laboratory examination (principal); D41.02 Neoplasm of uncertain behavior of left kidney
CPT/HCPCS: 71046; 80048; 81001; 85027; 87086

== ENCOUNTER 2023-02-08 05:46 | Inpatient (IN) | payer OTHER ==
[2023-02-06 11:03] VITALS: BMI 29.7
--- NOTE | 2023-02-07 11:23 | P.HPIHPCON ---
History of Present Illness H&P Date: 02/07/23 Chief Complaint: Left renal mass This is a 62-year-old female history of a 2.9 cm left-sided renal mass. Reviewed images with her in details, discussed this is concerning for renal cell carcinoma. Option of partial nephrectomy, versus cryoablation, versus observation was discussed in detail. She agreed to proceed with a robotic left- sided partial nephrectomy aware of the risk which was met limited to bleeding, infection, injury to nearby organs. Discussed also potential of converting into a radical nephrectomy. Discussed if we do perform radical nephrectomy and potential of needing hemodialysis and the short and long-term. Risk of anesthesia was also discussed. She should all the risk and agreed to proceed Consent for Procedure: I have explained the operation/procedure to the patient, including the risks, benefits, side effects, alternative therapies (including not receiving the proposed treatment or service), the likelihood of the patient achieving his/her goals, and potential recuperation problems for the procedure/sedation/analgesia, as well as any blood products, if indicated. I also explained to the patient the risks, benefits and side effects of the alternatives, as well as the risks related to not receiving the proposed procedure, care, treatment, or services. Past Medical History Past Medical History: Cancer, Heart Failure, Diabetes Mellitus, Hyperlipidemia, Hypertension, Musculoskeletal Disorder, Thyroid Disorder Additional Past Medical History / Comment(s): left kdney CA, R breast cancer 2003 received radiation,L breast CA 2022 received radiation, colon cancer received resection, chronic pain, anemia, migraines, KIDNEY STONES History of Any Multi-Drug Resistant Organisms: None Reported Past Surgical History: Bowel Resection, Breast Surgery, Cholecystectomy, Hysterectomy, Tubal Ligation, Uterine Ablation Additional Past Surgical History / Comment(s): R & L breast lumpectomies, COLONOSCOPY Past Anesthesia/Blood Transfusion Reactions: Motion Sickness, Postoperative Nausea & Vomiting (PONV) Smoking Status: Never smoker - Past Family History Mother Family Medical History: No Reported History Additional Family Medical History / Comment(s): Mother is healthy and is 84 yrs old. Father Family Medical History: Cancer Additional Family Medical History / Comment(s): Father had prostate cancer. He d/t complication with intubation/lung puncture per pt. Medications and Allergies Home Medications Medication Instructions Recorded Confirmed Type Levothyroxine Sodium [Synthroid] 75 mcg PO QAM 06/30/14 02/06/23 History Metoprolol Tartrate [Lopressor] 50 mg PO QAM 06/30/14 02/06/23 History metFORMIN HCL [Glucophage] 500 mg PO TID 06/30/14 02/06/23 History lisinopriL 20 mg PO BID 08/21/18 02/06/23 History Cyclobenzaprine [Flexeril] 10 mg PO HS 08/04/21 02/06/23 History Latanoprost/Pf [Latanoprost 0.005% 1 drop BOTH EYES HS 08/04/21 02/06/23 History Eye Drop] Meloxicam 15 mg PO DAILY 10/04/21 02/06/23 History Exemestane [Aromasin] 25 mg PO DAILY 11/17/22 02/06/23 History Allergies Allergy/AdvReac Type Severity Reaction Status Date / Time Iodinated Contrast Media Allergy Rash/Hives Verified 02/06/23 10:50 [Iodinated Contrast- Oral and IV Dye] Surgical - Exam - General no distress, no pain - Eyes normal ocular movement, no pale - ENT normal nares, normal mucosa - Respiratory normal expansion, normal respiratory effort - Abdomen Abdomen: soft, non tender Assessment and Plan Assessment: OR for robotic left-sided partial nephrectomy
[2023-02-08] MEDS ORDERED: ONDANSETRON 4 MG/2 ML VIAL IVP ONE (05:54)
[2023-02-08] MEDS ORDERED: DEXAMETHASONE SOD PHOSPHATE 4 MG/ML 1 ML VIAL IV ONE (05:54)
[2023-02-08] MEDS ORDERED: LIDOCAINE 1% (10MG/ML) FOR IV START INTRADERMA PRN (05:54)
[2023-02-08] MEDS ORDERED: HYDROmorphone 0.5 MG/0.5 ML SYRINGE IVP PRN (05:54)
[2023-02-08] MEDS: LACTATED RINGERS 1,000 ML IV SCH ×2 (06:30→13:57)
[2023-02-08] MEDS ORDERED: LACTATED RINGERS 1,000 ML IV ONE ×3 (06:35→11:30)
[2023-02-08] MEDS ORDERED: fentaNYL (PF) 50 MCG/ML 2 ML AMP IV PRN (07:00)
[2023-02-08 07:13] LABS: Glucose,Whole Blood 130 mg/dL (70-110)
[2023-02-08] MEDS ORDERED: MIDAZOLAM 2 MG/2 ML VIAL IVP ONE (07:17)
[2023-02-08] MEDS ORDERED: MIDAZOLAM 2 MG/2 ML VIAL ONE (07:44)
[2023-02-08] MEDS ORDERED: GLYCOPYRROLATE 0.2 MG/ML 2 ML VIAL ONE (07:44)
[2023-02-08] MEDS ORDERED: PROPOFOL 10 MG/ML 20 ML VIAL IV ONE (07:44)
[2023-02-08] MEDS ORDERED: fentaNYL (PF) 50 MCG/ML 2 ML AMP ONE (07:44)
[2023-02-08] MEDS ORDERED: ROCURONIUM 10 MG/ML (5 ML VIAL) IV ONE (07:44)
[2023-02-08] MEDS ORDERED: PHENYLEPHRINE-0.9% NACL SYG 1,000 MCG/10 ML SYRINGE ONE (07:44)
[2023-02-08] MEDS ORDERED: WATER FOR INJECTION, STERILE 10 ML VIAL IV ONE (07:44)
[2023-02-08] MEDS ORDERED: ePHEDrine 50 MG/ML 1 ML VIAL ONE (07:44)
[2023-02-08] MEDS ORDERED: NEOSTIGMINE 1 MG/ML 10 ML VIAL ONE (07:44)
[2023-02-08] MEDS ORDERED: SUGAMMADEX SODIUM 200 MG/2 ML SDV IV ONE (07:44)
[2023-02-08] MEDS ORDERED: HYDROmorphone (PF) 1 MG/ML ONE (07:44)
[2023-02-08] MEDS ORDERED: SUCCINYLCHOLINE CHLORIDE 200 MG/10 ML VIAL IV ONE (07:44)
[2023-02-08] MEDS ORDERED: LIDOCAINE 0.5%-EPI 1:200,000 50 ML VIAL SQ ONE ×2 (09:06→11:09)
--- NOTE | 2023-02-08 12:28 | P.OP ---
Date of Procedure: 02/08/23 Preoperative Diagnosis: left Renal mass Postoperative Diagnosis: same Procedure(s) Performed: left robotic partial nephrectomy Implants: none Anesthesia: ARCHANA Surgeon: Gallito Norris Creative Manager #1: Miguel Solomon Estimated Blood Loss (ml): 50 Pathology: other (left renal mas) Condition: stable Disposition: PACU Indications for Procedure: This is a 62-year-old female history of a 2.9 cm left-sided renal mass. Reviewed images with her in details, discussed this is concerning for renal cell carcinoma. Option of partial nephrectomy, versus cryoablation, versus observation was discussed in detail. She agreed to proceed with a robotic left- sided partial nephrectomy aware of the risk which was met limited to bleeding, infection, injury to nearby organs. Discussed also potential of converting into a radical nephrectomy. Discussed if we do perform radical nephrectomy and potential of needing hemodialysis and the short and long-term. Risk of anesthesia was also discussed. She should all the risk and agreed to proceed Description of Procedure: The patient was taken to the operating room . General anesthesia was induced. She was prepped and draped in sterile fashion, she was placed in modified flank position . All pressure points were padded. The abdominal insufflation was achieved with the Veress needle. A 8 mm camera port was placed. Robotic trocars and assistant boys track coach ports were placed under direct vision. The robot was docked into place. The colon was mobilized medially by incising along the white line of Toldt. Next the spleen and the pancrease were mobilized. Once the bowel, spleen and pancreas were mobilized. At this time the gonadal vessel was visualized. Once the gonadal vessel and ureter was visualized , next after the psoas plane was developed the ureter and gonadal vessel was retracted anteriorly off the psoas muscle. Dissection proceeded cranially towards the renal hilum. The upper pole attachments were dissected. Care was taken to safely mobilize the kidney free of all visceral structures.The renal vessels were dissected. The renal artery and the vein was dissected in preparation for clamping. Next attention was carried to the tumor, the area around the tumor was defatted, insuring adequate defatting to identify a normal parenchyma. Manitol was administered. The renal artery was clamped using 2 bulldogs. After clamping the renal artery the tumor was excised sharply with adequate margin, and cautery was used in areas of bleeding. Next the defect was closed in 2 layers using 30V lock for the inner layer, 20V lock in interrupted fashion for the outer layer. Sliding clip technique was used. Next the clamps were removed, there was no evidence of bleeding from the defect, total clamp time was 15 minutes.. Hemostatic agents were applied The kidney tumor was placed in an Endo Catch bag. A KJ drain was placed through the lower robotic trocor incision. The robot was then de-docked and the specimen was then removed by extending the assistant boys track coach port. faccia was closed using a serena thompason. Skin was closed with subcuticular sutures and dermabond. The patient was awoken from general anesthesia in stable condition. all counts were correct Please refer to the final pathology report for final diagnosis
[2023-02-08 12:55] LABS: Glucose,Whole Blood 223 mg/dL (70-110)
[2023-02-08] MEDS ORDERED: INSULIN ASPART (NovoLOG) 100 UNIT/ML VIAL SQ ONE (13:00)
[2023-02-08] MEDS: SODIUM CHLORIDE 0.9% 1,000 ML IV SCH ×2 (13:57→21:35)
[2023-02-08] MEDS: KETOROLAC 15 MG/ML 1 ML VIAL IVP SCH ×2 (14:00→18:07)
[2023-02-08] MEDS: metFORMIN 500 MG TAB PO SCH ×2 (14:01→18:06)
[2023-02-08 16:19] LABS: Glucose,Whole Blood 193 mg/dL (70-110)
[2023-02-08] MEDS: HYDROmorphone 1 MG/ML 1 ML SYRINGE IVP PRN ×2 (16:24→21:07)
[2023-02-08] MEDS: ONDANSETRON 4 MG/2 ML VIAL IVP PRN (16:43)
[2023-02-08 20:35] LABS: Glucose,Whole Blood 183 mg/dL (70-110)
[2023-02-08] MEDS: lisinopriL 20 MG TAB PO SCH (20:57)
[2023-02-08] MEDS: CYCLOBENZAPRINE 10 MG TAB PO SCH (20:57)
[2023-02-08] MEDS: LATANOPROST 0.005% OPHTH DROPS 2.5 ML BTL BOTH EYES SCH (21:07)
[2023-02-09] MEDS: KETOROLAC 15 MG/ML 1 ML VIAL IVP SCH ×5 (00:35→23:06)
[2023-02-09 05:51] LABS: Glucose,Whole Blood 141 mg/dL (70-110)
[2023-02-09] MEDS: LEVOTHYROXINE 75 MCG TAB PO SCH (06:11)
[2023-02-09] MEDS: metFORMIN 500 MG TAB PO SCH ×3 (06:11→17:21)
[2023-02-09] MEDS: LACTATED RINGERS 1,000 ML IV SCH ×3 (06:12→23:06)
[2023-02-09] MEDS: lisinopriL 20 MG TAB PO SCH ×2 (08:59→21:33)
[2023-02-09] MEDS: METOPROLOL TARTRATE 50 MG TAB PO SCH (08:59)
[2023-02-09] MEDS: HYDROmorphone 1 MG/ML 1 ML SYRINGE IVP PRN (09:28)
[2023-02-09] MEDS: ONDANSETRON 4 MG/2 ML VIAL IVP PRN (09:35)
[2023-02-09 10:54] LABS: Basophils # (A) 0.02 X 10*3/uL (0.00-0.10); Basophils % (A) 0.1 %; Eosinophils # (A) 0 X 10*3/uL (0.04-0.35); Eosinophils % (A) 0 %; HGB 13.1 d/dL (12.0-15.0); Lymphocytes # (A) 1.27 X 10*3/uL (0.90-5.00); Lymphocytes % (A) 8.2 %; MCHC 32.8 d/dL (32.0-37.0); MCV 91.7 FL (80.0-97.0); Mean Platelet Volume 11.8 FL (9.5-12.2); Monocytes # (A) 1.32 X 10*3/uL (0.20-1.00); Monocytes % (A) 8.5 %; NRBC Per 100 WBC 0 X 10*3/uL (0.00-0.01); Neutrophils # (A) 12.87 X 10*3/uL (1.80-7.70); Neutrophils % (A) 82.6 %; Platelet Count 213 X 10*3/uL (140-440); RBC 4.36 X 10*6/uL (4.10-5.20); RDW 13.5 % (11.5-14.5); WBC 15.57 X 10*3/uL (4.50-10.00)
[2023-02-09 11:05] LABS: BUN/Creat Ratio 18.31 Ratio (12.00-20.00); Blood Urea Nitrogen 23.8 mg/dL (9.0-27.0); Calcium 9.2 mg/dL (8.7-10.3); Carbon Dioxide 22.4 mmol/L (21.6-31.8); Chloride 105 mmol/L (96-109); Glucose 123 mg/dL (70-110); Potassium 4.7 mmol/L (3.5-5.5); Sodium 140 mmol/L (135-145)
[2023-02-09] MEDS: HYDROcodone/APAP 5-325MG 1 EACH TAB PO PRN ×3 (11:05→20:35)
--- NOTE | 2023-02-09 11:29 | P.ANPRN ---
Procedure Note - Anesthesia - Nerve Block Performed Bilateral Erector Spinae Single Time Out Performed: Yes Date of Procedure: 02/08/23 Procedure Start Time: 07:16 Procedure Stop Time: :20 Location of Patient: PreOp Indication: Acute Post-Operative Pain, Requested by Surgeon Sedation Type: Sedate with meaningful contact maintained Preparation: Sterile Prep Position: Prone Needle Types: Pajunk Needle Gauge: 21 Ultrasound used to visualize needle placement: Yes Ultrasound used to observe medication spread: Yes Blood Aspirated: No Pain Paresthesia on Injection Noted: No Resistance on Injection: Normal Image Stored and Saved: Yes Events: Uneventful and Well Tolerated (Ropivacaine 0.5% 15 mL plus normal saline 10 mL plus dexamethasone 4 mg given bilaterally at L1)
[2023-02-09 11:48] LABS: Glucose,Whole Blood 113 mg/dL (70-110)
[2023-02-09] MEDS: SODIUM CHLORIDE 0.9% 1,000 ML IV SCH ×2 (12:17→23:08)
--- NOTE | 2023-02-09 15:27 | P.PN ---
Subjective S/P robotic left partial nephrectomy, having pain this morning controlled with current pain regimen, has not ambulated yet Physical Exam Abdomen: soft, tenderness along incision KJ serosing A/P POD #1 S/P left robotic partial nephrectomy -pain control -ambulate -Will keep in hospital, plan discharge home tomorrow Objective - Vital Signs Vital signs: Vital Signs Temp 97.8 F 02/09/23 13:25 Pulse 66 02/09/23 13:25 Resp 17 02/09/23 13:25 BP 100/64 02/09/23 13:25 Pulse Ox 97 02/09/23 13:25 FiO2 Intake & Output 02/08/23 02/09/23 02/09/23 18:59 06:59 18:59 Intake Total 1500 118 Output Total 500 540 Balance 1000 -540 118 Weight 76.7 kg Intake: IV 1500 Oral 118 Output: Drainage 10 40 Left Lower Abdomen 10 40 Urine 390 500 Stool 0 Emesis 50 Estimated Blood Loss 50 Other: Voiding Method Indwelling Catheter Indwelling Catheter Indwelling Catheter - Labs CBC & Chem 7: 02/09/23 07:06 02/09/23 07:06 Labs: Abnormal Lab Results - Last 24 Hours (Table) 02/08/23 02/08/23 02/09/23 Range/Units 16:18 20:33 05:47 WBC (4.50-10.00) X 10*3/uL Neutrophils # (1.80-7.70) X 10*3/uL Monocytes # (0.20-1.00) X 10*3/uL Eosinophils # (0.04-0.35) X 10*3/uL Anion Gap (4.00-12.00) mmol/L Est GFR (CKD-EPI) (>=60) Glucose (70-110) mg/dL POC Glucose (mg/dL) 193 H 183 H 141 H (70-110) mg/dL 02/09/23 02/09/23 02/09/23 Range/Units 07:06 07:06 11:45 WBC 15.57 H (4.50-10.00) X 10*3/uL Neutrophils # 12.87 H (1.80-7.70) X 10*3/uL Monocytes # 1.32 H (0.20-1.00) X 10*3/uL Eosinophils # 0 L (0.04-0.35) X 10*3/uL Anion Gap 12.60 H (4.00-12.00) mmol/L Est GFR (CKD-EPI) 46 L (>=60) Glucose 123 H (70-110) mg/dL POC Glucose (mg/dL) 113 H (70-110) mg/dL
[2023-02-09] MEDS: LATANOPROST 0.005% OPHTH DROPS 2.5 ML BTL BOTH EYES SCH (20:28)
[2023-02-09] MEDS: CYCLOBENZAPRINE 10 MG TAB PO SCH (21:33)
[2023-02-10] MEDS: LACTATED RINGERS 1,000 ML IV SCH ×2 (01:20→01:21)
[2023-02-10] MEDS: HYDROcodone/APAP 5-325MG 1 EACH TAB PO PRN (03:17)
[2023-02-10] MEDS: KETOROLAC 15 MG/ML 1 ML VIAL IVP SCH ×2 (06:35→12:11)
[2023-02-10] MEDS: LEVOTHYROXINE 75 MCG TAB PO SCH (06:36)
[2023-02-10] MEDS: metFORMIN 500 MG TAB PO SCH ×2 (06:36→12:11)
[2023-02-10] MEDS: lisinopriL 20 MG TAB PO SCH (08:47)
[2023-02-10] MEDS: METOPROLOL TARTRATE 50 MG TAB PO SCH (08:47)
--- NOTE | 2023-02-10 10:48 | P.PN ---
Subjective Progress Note Date: 02/10/23 Principal diagnosis: POD #2, s/p robotic-assisted laparoscopic left partial nephrectomy Patient states that she has not been out of bed since her surgery. She reports "gas pain". She denies chest pain and dyspnea. Objective - Vital Signs Vital signs: Vital Signs Temp 98.6 F 02/10/23 07:10 Pulse 74 02/10/23 07:10 Resp 17 02/10/23 07:10 BP 139/81 02/10/23 07:10 Pulse Ox 94 L 02/10/23 08:39 FiO2 Intake & Output 02/09/23 02/10/23 02/10/23 18:59 06:59 18:59 Intake Total 118 Output Total 400 810 Balance -282 -810 Intake: Oral 118 Output: Drainage 10 Left Lower Abdomen 10 Urine 400 800 Other: Voiding Method Indwelling Catheter Indwelling Catheter # Voids 1 - Constitutional General appearance: Present: average body habitus, no acute distress - Gastrointestinal Gastrointestinal Comment(s): Mildly distended, incisions clean, dry, and intact. Mild incisional discomfort, no guarding or rebound. Beavers catheter is draining clear yellow urine. KJ output is minimal. - Psychiatric Psychiatric: Present: A&O x's 3 - Labs CBC & Chem 7: 02/09/23 07:06 02/09/23 07:06 Labs: Abnormal Lab Results - Last 24 Hours (Table) 02/09/23 02/09/23 02/09/23 Range/Units 07:06 07:06 11:45 WBC 15.57 H (4.50-10.00) X 10*3/uL Neutrophils # 12.87 H (1.80-7.70) X 10*3/uL Monocytes # 1.32 H (0.20-1.00) X 10*3/uL Eosinophils # 0 L (0.04-0.35) X 10*3/uL Anion Gap 12.60 H (4.00-12.00) mmol/L Est GFR (CKD-EPI) 46 L (>=60) Glucose 123 H (70-110) mg/dL POC Glucose (mg/dL) 113 H (70-110) mg/dL Assessment and Plan (1) Left renal mass Current Visit: Yes Status: Acute Code(s): N28.89 - OTHER SPECIFIED DISORDERS OF KIDNEY AND URETER SNOMED Code(s): 433918511 Plan: KJ drain and Beavers catheter will be removed. Increase ambulation.
[2023-02-10 14:38] VITALS: BP 129/76; PULSE 73; RESP 18; TEMP 98.7
[2023-02-10] MEDS: SODIUM CHLORIDE 0.9% 1,000 ML IV SCH (14:42)
--- NOTE | 2023-02-10 15:43 | P.DS ---
Providers Date of admission: 02/09/23 14:33 Expected date of discharge: 02/10/23 Attending physician: Gallito Norris MD Primary care physician: Nichelle Juarez - Discharge Diagnosis(es) (1) Left renal mass Current Visit: Yes Status: Acute Hospital Course: The patient underwent a robotic-assisted laparoscopic left partial nephrectomy on 02/08/2023. The perioperative course was unremarkable. She remained afebrile with stable vital signs. KJ output was minimal. She was nonambulatory on the first postoperative day. On the second postoperative day, the Beavers catheter and KJ drain were both removed and she was encouraged to ambulate. She reported "gas pain", which improved after she had a bowel movement. Her pain was controlled at that point and she was discharged home. Procedures: Robotic-assisted laparoscopic left partial nephrectomy on 02/08/2023. Patient Condition at Discharge: Good Plan - Discharge Summary Discharge Rx Participant: Yes New Discharge Prescriptions: New HYDROcodone/APAP 5-325MG [[place] 5-325] 1 - 2 tab PO Q6HR PRN #10 tab PRN Reason: Moderate To Severe Pain (4-10) No Action metFORMIN HCL [Glucophage] 500 mg PO TID Levothyroxine Sodium [Synthroid] 75 mcg PO QAM Metoprolol Tartrate [Lopressor] 50 mg PO QAM lisinopriL 20 mg PO BID Latanoprost/Pf [Latanoprost 0.005% Eye Drop] 1 drop BOTH EYES HS Exemestane [Aromasin] 25 mg PO DAILY Cyclobenzaprine [Flexeril] 10 mg PO HS Meloxicam 15 mg PO DAILY Discharge Medication List Levothyroxine Sodium [Synthroid] 75 mcg PO QAM 06/30/14 [History] Metoprolol Tartrate [Lopressor] 50 mg PO QAM 06/30/14 [History] metFORMIN HCL [Glucophage] 500 mg PO TID 06/30/14 [History] lisinopriL 20 mg PO BID 08/21/18 [History] Cyclobenzaprine [Flexeril] 10 mg PO HS 08/04/21 [History] Latanoprost/Pf [Latanoprost 0.005% Eye Drop] 1 drop BOTH EYES HS 08/04/21 [History] Meloxicam 15 mg PO DAILY 10/04/21 [History] Exemestane [Aromasin] 25 mg PO DAILY 11/17/22 [History] HYDROcodone/APAP 5-325MG [[place] 5-325] 1 - 2 tab PO Q6HR PRN #10 tab 02/10/23 [Rx] Follow up Appointment(s)/Referral(s): Gallito Norris MD [STAFF PHYSICIAN] - 1 Week Activity/Diet/Wound Care/Special Instructions: No lifting, driving, or strenuous activity. OK to shower. Discharge Disposition: HOME SELF-CARE
--- NOTE | 2023-02-15 19:15 | CDI ---
Documentation Clarification Form Date: 02/13/2023 04:00:00 PM From: Akua Faust RN, CCDS Email: [email or web address] Admit Date: 02/09/2023 02:33:00 PM Patient Name: Karina Alicea Visit Number: [id number] Discharge Date: 02/10/2023 04:00:00 PM ATTENTION: The Clinical Documentation Specialists (CDI) and [facility] Coding Staff appreciate your assistance in clarifying documentation. Please respond to the clarification below the line at the bottom and electronically sign. The CDI & [facility] Coding staff will review the response and follow-up if needed. Please note: Queries are made part of the Legal Health Record. If you have any questions, please contact the author of this message via ITS. Dr. 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 Coding guidelines do not allow coding professionals to code based on pathology results; therefore, clarification is requested. History/risk factors: left renal mass, breast cancer, DM, HLD, HTN Clinical Indicators: 02/08 Pathology report: Clear cell renal cell carcinoma. Focal features compatible with lymphovascular invasion. Soft tissue and renal parenchymal margins negative for tumor. Cauterized and fragmented capsular margin favored positive for tumor. Discharge summary: "Left renal mass." Treatment: left robotic partial nephrectomy Please clarify if you agree with the pathology report diagnosis of clear cell renal cell carcinoma with lymphovascular invasion: [ X ] Yes [ ] No [ ] Other (please specify) [ ] Unable to determine MTDD
== END 2023-02-10 16:00 | disposition home or self-care (01) | DRG 657 ==
LOC: OR 05:46 → 4SSUR 07:57 → OR 11:11 → 4SSUR 02-09 14:33 → UNDOADMIN 02-09 14:33 → 4SSUR 02-09 14:33 → UNDODISIN 02-10 16:00
PROVIDERS: ADMIT Urology; ATTEND Urology
PROC: 8E0W4CZ Robotic Assisted Procedure of Trunk Region, Percutaneous Endoscopic Approach (ICD-10-PCS; 2023-02-08)
PROC: 3E0T3BZ Introduction of Anesthetic Agent into Peripheral Nerves and Plexi, Percutaneous Approach (ICD-10-PCS; 2023-02-08)
PROC: 0TB14ZZ Excision of Left Kidney, Percutaneous Endoscopic Approach (ICD-10-PCS; principal; 2023-02-08 07:30)
DX: C64.2 Malignant neoplasm of left kidney, except renal pelvis (principal); C79.89 Secondary malignant neoplasm of other specified sites; Z91.041 Radiographic dye allergy status; I10 Essential (primary) hypertension; I50.9 Heart failure, unspecified; G89.29 Other chronic pain; E78.5 Hyperlipidemia, unspecified; E11.9 Type 2 diabetes mellitus without complications; Z87.442 Personal history of urinary calculi; D64.9 Anemia, unspecified; Z92.3 Personal history of irradiation; Z85.3 Personal history of malignant neoplasm of breast; Z90.49 Acquired absence of other specified parts of digestive tract; Z79.84 Long term (current) use of oral hypoglycemic drugs
CPT/HCPCS: 80048; 85025; 86850; 86900; 86901; 88307; 94760

== ENCOUNTER 2023-05-01 07:55 | Day surgery (SDC) | payer OTHER ==
[2023-04-25 10:22] VITALS: BMI 31.4
[~2023-05-01 07:55] MED LIST changes: -DEXAMETHASONE SOD PHOSPHATE 4 MG/ML 1 ML VIAL IV ONE
[2023-05-01 09:16] LABS: Glucose,Whole Blood 127 mg/dL (70-110)
[2023-05-01 09:32] VITALS: TEMP 98.2
[2023-05-01] MEDS ORDERED: PROPOFOL 10 MG/ML 20 ML VIAL IV ONE (09:43)
--- NOTE | 2023-05-01 09:45 | P.GSHP ---
History of Present Illness H&P Date: 05/01/23 Chief Complaint: Colon cancer screening 62-year-old female here for colonoscopy. Last colonoscopy 8 years ago. Patient has a personal history of right-sided colon cancer. No bowel complaints. Past Medical History Past Medical History: Cancer, Diabetes Mellitus, Hyperlipidemia, Hypertension, Musculoskeletal Disorder, Thyroid Disorder Additional Past Medical History / Comment(s): Hx bilateral breast cancer, colon cancer, left kidney cancer, chronic pain, anemia, migraines, kidney stones. History of Any Multi-Drug Resistant Organisms: None Reported Past Surgical History: Bowel Resection, Breast Surgery, Cholecystectomy, Hysterectomy, Tubal Ligation, Uterine Ablation Additional Past Surgical History / Comment(s): Bilateral breast lumpectomy, colonoscopy, left partial nephrectomy. Past Anesthesia/Blood Transfusion Reactions: Motion Sickness, Postoperative Nausea & Vomiting (PONV) Past Psychological History: Depression Additional Psychological History / Comment(s): Situational depression. Smoking Status: Never smoker Past Alcohol Use History: None Reported Past Drug Use History: None Reported - Past Family History Mother Family Medical History: No Reported History Additional Family Medical History / Comment(s): Mother is healthy and is 84 yrs old. Father Family Medical History: Cancer Additional Family Medical History / Comment(s): Father had prostate cancer. He d/t complication with intubation/lung puncture per pt. Medications and Allergies Home Medications Medication Instructions Recorded Confirmed Type Levothyroxine Sodium [Synthroid] 75 mcg PO QAM 06/30/14 05/01/23 History Metoprolol Tartrate [Lopressor] 50 mg PO QAM 06/30/14 05/01/23 History metFORMIN HCL [Glucophage] 500 mg PO TID 06/30/14 05/01/23 History lisinopriL 20 mg PO BID 08/21/18 05/01/23 History Cyclobenzaprine [Flexeril] 10 mg PO HS 08/04/21 05/01/23 History Latanoprost/Pf [Latanoprost 0.005% 1 drop BOTH EYES HS 08/04/21 05/01/23 History Eye Drop] Meloxicam 15 mg PO DAILY 10/04/21 05/01/23 History Exemestane [Aromasin] 25 mg PO DAILY 11/17/22 05/01/23 History Allergies Allergy/AdvReac Type Severity Reaction Status Date / Time Iodinated Contrast Media Allergy Rash/Hives Verified 05/01/23 09:04 [Iodinated Contrast- Oral and IV Dye] Surgical - Exam Vital Signs Temp Pulse Resp BP Pulse Ox 98.2 F 89 16 172/89 95 05/01/23 09:07 05/01/23 09:07 05/01/23 09:07 05/01/23 09:07 05/01/23 09:07 Physical exam: General: Well-developed, well-nourished HEENT: Normocephalic, sclerae nonicteric Abdomen: Nontender, nondistended Extremities: No edema Neuro: Alert and oriented Results - Labs Abnormal Lab Results - Last 24 Hours (Table) 05/01/23 Range/Units 09:15 POC Glucose (mg/dL) 127 H (70-110) mg/dL Assessment and Plan (1) History of colon cancer Narrative/Plan: Will proceed with colonoscopy at this time Current Visit: No Status: Acute Code(s): Z85.038 - PERSONAL HISTORY OF MALIGNANT NEOPLASM OF LARGE INTESTINE SNOMED Code(s): 245474867
--- NOTE | 2023-05-01 09:54 | P.PCN ---
Date of Procedure: 05/01/23 Procedure(s) Performed: PREOPERATIVE DIAGNOSIS: Personal history of colon cancer, screening POSTOPERATIVE DIAGNOSIS: Mild diverticulosis PROCEDURE: Colonoscopy ANESTHESIA: MAC SURGEON: Guy Hewitt M.D. SPECIMENS: None ENDOSCOPIC PROCEDURE: The patient was placed on the endoscopy table in the left decubitus position. The Olympus colonoscope was inserted into the anus and passed under direct visualization to the ileocolonic anastomosis. From that point the scope was slowly withdrawn inspecting all surfaces carefully. There were no neoplastic inflammatory or polypoid lesions throughout the transverse, descending, sigmoid and rectum. There was mild diverticulosis noted. Digital rectal examination was normal. The patient was taken to the recovery room in stable condition per anesthesia guidelines. RECOMMENDATIONS: Resume diet. Repeat colonoscopy 5 years.
[2023-05-01 10:03] VITALS: PULSE 83
[2023-05-01 10:05] LABS: Glucose,Whole Blood 122 mg/dL (70-110)
[2023-05-01 10:32] VITALS: BP 157/99; RESP 17
== END 2023-05-01 10:40 | disposition home or self-care (01) ==
LOC: ORWHC2ENDO 07:55
PROVIDERS: ATTEND Surgery
DX: Z12.11 Encounter for screening for malignant neoplasm of colon (principal); Z86.010 Personal history of colon polyps; K57.30 Diverticulosis of large intestine without perforation or abscess without bleeding; E11.9 Type 2 diabetes mellitus without complications; E78.5 Hyperlipidemia, unspecified; I10 Essential (primary) hypertension; M79.9 Soft tissue disorder, unspecified; E07.9 Disorder of thyroid, unspecified; Z85.3 Personal history of malignant neoplasm of breast; Z87.442 Personal history of urinary calculi; G43.909 Migraine, unspecified, not intractable, without status migrainosus; G89.29 Other chronic pain; Z90.49 Acquired absence of other specified parts of digestive tract; Z98.51 Tubal ligation status; Z90.710 Acquired absence of both cervix and uterus; Z98.890 Other specified postprocedural states; F32.A Depression, unspecified; Z79.890 Hormone replacement therapy; Z79.84 Long term (current) use of oral hypoglycemic drugs; Z79.1 Long term (current) use of non-steroidal anti-inflammatories (NSAID); Z79.899 Other long term (current) drug therapy; Z91.041 Radiographic dye allergy status; Z88.8 Allergy status to other drugs, medicaments and biological substances
CPT/HCPCS: 45378; J2704

== ENCOUNTER → 2023-07-30 | Outpatient (CLI) | payer OTHER ==
--- NOTE | 2023-07-30 10:08 | MM ---
Reason for Exam: Follow-up at short interval from prior study. Last screening mammogram was performed 12 month(s) ago. Patient History: Menarche at age 11. First Full-Term at age 32. Late child-bearing (after 30). Hysterectomy at age 58. Postmenopausal. Breast cancer, age 61. Colorectal cancer, age 51. Tamoxifen, starting at age 61. Currently using Unspecified Hormone, starting at age 62. 2003, Lumpectomy on the Right side. 10/06/2021, Lumpectomy on the Left side. Core Biopsy on the Right side. Core Biopsy on the Left side. 10/06/2021, Malignant Core Biopsy on the left side. 08/15/2021, Malignant Core Biopsy on the left side. 04/06/2004, Benign Stereotactic Core Biopsy on the left side. 04/06/2004, Benign Stereotactic Core Biopsy on the right side. 2021, Radiation Therapy on the left side. 2003, Radiation Therapy. Maternal aunt had breast cancer, age 75. Tissue Density: The breast tissue is heterogeneously dense. This may lower the sensitivity of mammography. Findings: Analyzed By CAD. Pattern appears unchanged. Density is diminished within the left breast compared to prior study. There is some improvement of the skin thickening. There are bilateral lumpectomy sites with surgical clips and distortion. There are increasing calcifications in the subareolar left breast. There is mild increased density in the lower inner aspect left breast at the previous location. This is less dense but persistent. On compression this area appears to disperse. All ultrasound of this area is recommended. Overall Assessment: Incomplete: need additional imaging evaluation, BI-RAD 0 Management: Diagnostic Breast Ultrasound of the left breast. A negative mammogram report should not preclude additional follow up of suspicious palpable abnormalities. Patient should continue monthly self breast exam. A clinical breast exam by your physician is recommended on an annual basis and results should be correlated with mammographic findings. Electronically signed and approved by: Yehuda Jiménez D.O. Radiologis
--- NOTE | 2023-07-30 10:47 | USB ---
Reason for Exam: Additional evaluation requested from prior study. Patient History: Menarche at age 11. First Full-Term at age 32. Late child-bearing (after 30). Hysterectomy at age 58. Postmenopausal. Breast cancer, age 61. Colorectal cancer, age 51. Tamoxifen, starting at age 61. Currently using Unspecified Hormone, starting at age 62. 2003, Lumpectomy on the Right side. 10/06/2021, Lumpectomy on the Left side. Core Biopsy on the Right side. Core Biopsy on the Left side. 10/06/2021, Malignant Core Biopsy on the left side. 08/15/2021, Malignant Core Biopsy on the left side. 04/06/2004, Benign Stereotactic Core Biopsy on the left side. 04/06/2004, Benign Stereotactic Core Biopsy on the right side. 2021, Radiation Therapy on the left side. 2003, Radiation Therapy. Maternal aunt had breast cancer, age 75. Technique: Method: Targeted. Prior Study Comparison: 07/22/2021 Left Diagnostic Mammogram, [facility]. 07/27/2022 Bilateral MG diagnostic mammo w CAD KENNY, [facility]. 01/25/2023 Left MG 3D diag mammo w/cad LT, [facility]. Findings: The medial section of the breast of the left breast, the axilla of the left breast and the retroareolar of the left breast were scanned. No solid or cystic masses are identified at the lower inner quadrant left breast. The patient's prior lumpectomy site is identified by ultrasound at the 10:00 to 11:00 position 5 cm from the nipple. Overall Assessment: Probably benign, BI-RAD 3 Management: Diagnostic Mammogram of the left breast in 6 months. A clinical breast exam by your physician is recommended on an annual basis and results should be correlated with mammographic findings. This exam should not preclude additional follow-up of suspicious palpable abnormalities. Results were given to the patient verbally at the time of exam. Electronically signed and approved by: Yehuda Jiménez D.O. Radiologis
== END | disposition home or self-care (01) ==
LOC: RADMAMWWP 09:23
PROVIDERS: ATTEND Surgery
DX: R92.333 Mammographic heterogeneous density, bilateral breasts (principal); Z80.3 Family history of malignant neoplasm of breast; Z85.3 Personal history of malignant neoplasm of breast; Z78.0 Asymptomatic menopausal state
CPT/HCPCS: 77062; 77066

== ENCOUNTER → 2023-07-30 | Outpatient (CLI) | payer OTHER ==
[2023-07-30 11:34] LABS: African American GFR (CKD) 74 (>60 ml/min/1.73 sqM); Blood Urea Nitrogen 25 mg/dL (7-17); Non-African American GFR(CKD) 64 (>60 ml/min/1.73 sqM)
--- NOTE | 2023-07-30 12:42 | XR ---
EXAMINATION TYPE: XR chest 2V DATE OF EXAM: 07/30/2023 12:32 PM CLINICAL INDICATION:Female, 62 years old with history of RENAL CA; [facility] COMPARISON: Chest radiographs from 02/01/2023. TECHNIQUE: XR chest 2V Frontal and lateral views of the chest. FINDINGS: Lungs/Pleura: There is no evidence of pleural effusion, focal consolidation, or pneumothorax. Pulmonary vascularity: Unremarkable. Heart/mediastinum: Cardiomediastinal silhouette is unremarkable. Musculoskeletal: No acute osseous pathology. Other findings: Surgical clips project over the breasts bilaterally. IMPRESSION: No acute cardiopulmonary disease/process.
--- NOTE | 2023-07-30 13:16 | CT ---
EXAMINATION TYPE: CT abdomen wo/w con DATE OF EXAM: 07/30/2023 COMPARISON: 10/24/2022 HISTORY: 62-year-old female C64.2, f/u renal ca TECHNIQUE: Contiguous axial scanning of the abdomen before and after administration of 100 ml Isovue 300 IV contrast. Delayed images through the kidneys and coronal/sagittal reconstructions performed. CT DLP: 1647.3 mGycm Automated exposure control for dose reduction was used. FINDINGS: Heart borderline enlarged without pericardial effusion. There are some central groundglass changes in the visualized lower lungs. Correlate for any respiratory symptoms to exclude atypical pne umonia or interstitial pneumonitis. No pleural effusion. No focal liver lesion or biliary ductal dilatation. Cholecystectomy clips. Portal venous system is pa tent. Adrenal glands, spleen with small inferior hilar splenule, and pancreas within normal limits. Postresection changes along the lateral upper upper pole of the left kidney at the site of previous R CC. However, lateral upper to mid left kidney shows some hypodensity measuring up to 1.5 cm, axial image 33 and 35 particularly on the delayed kidney scan that should be reassessed at follow-up. This may re flect postsurgical change. 8mm and a couple additional smaller cysts within the bilateral kidneys. Symmetric uptake and excretio n of contrast from both kidneys. Nonobstructive 7 mm left lower pole renal calculus. No dilated small bowel, free fluid, or free air. Post surgical change of partial right hemicolectomy with ileocolonic anastomosis at the right upper quadrant. Scattered mild stool. Mild to moderate atherosclerotic calcifications abdominal aorta. Bones: There is left L5 hemisacraliz ation. Hypertrophic facet arthropathy lower lumbar spine. Degenerative grade 1 anterolisthesis L5-S1. IMPRESSION: 1. INTERVAL POSTRESECTION CHANGES LATERAL UPPER POLE LEFT KIDNEY AT THE SITE OF PREVIOUS RCC. THERE I S SOME PARENCHYMAL HYPODENSITY HERE MEASURING UP TO 1.5 CM THAT MAY REFLECT POSTSURGICAL CHANGE. CLOS E SURVEILLANCE FOLLOW-UP TO EXCLUDE RESIDUAL/LOCALLY RECURRENT DISEASE. 2. SOME GROUNDGLASS CHANGE CENTRALLY WITHIN THE VISUALIZED LOWER LUNGS MAY BE SLIGHTLY INCREASED. COR RELATE FOR ANY RESPIRATORY SYMPTOMS TO EXCLUDE ATYPICAL PNEUMONIA OR INTERSTITIAL PNEUMONITIS. 3. NONOBSTRUCTIVE 7 MM LEFT RENAL CALCULUS.
== END | disposition home or self-care (01) ==
LOC: RADCTMAIN 10:49
PROVIDERS: ATTEND Urology
DX: C64.2 Malignant neoplasm of left kidney, except renal pelvis (principal); N20.0 Calculus of kidney
CPT/HCPCS: 82565; 84520; 71046; 74170; 36415; Q9967

== ENCOUNTER 2024-01-22 11:00 | Day surgery (SDC) | payer OTHER ==
[~2024-01-22 11:00] MED LIST changes: +DEXAMETHASONE SOD PHOSPHATE 4 MG/ML 1 ML VIAL ONE; -LACTATED RINGERS 1,000 ML IV SCH; +ONDANSETRON 4 MG/2 ML VIAL ONE
[2024-01-22] MEDS ORDERED: SODIUM CHLORIDE 0.9% 50 ML BAG ONE (12:20)
[2024-01-22] MEDS ORDERED: fentaNYL (PF) 50 MCG/ML 2 ML AMP ONE (12:20)
[2024-01-22] MEDS ORDERED: ceFAZolin 10 GM VIAL IVPB ONE (12:20)
[2024-01-22] MEDS ORDERED: LIDOCAINE 1% INJ 10MG/ML (20 ML MDV) ONE (12:20)
[2024-01-22] MEDS ORDERED: MIDAZOLAM 2 MG/2 ML VIAL ONE (12:20)
[2024-01-22] MEDS ORDERED: PROPOFOL 10 MG/ML 20 ML VIAL IV ONE (12:20)
[2024-01-22] MEDS ORDERED: LACTATED RINGERS 1,000 ML BAG ONE ×2 (12:20)
[2024-01-22] MEDS ORDERED: PHENYLEPHRINE 10 MG/ML VIAL ONE (12:20)
--- NOTE | 2024-03-03 15:47 | OP ---
OPERATIVE REPORT DATE OF SERVICE : PREOPERATIVE DIAGNOSIS: Left renal stone. POSTOPERATIVE DIAGNOSIS: Left renal stone. OPERATION: Left ureteroscopy, holmium laser lithotripsy, stone basketing, and stent insertion. COMPLICATIONS: None. CONDITION: Stable. ESTIMATED BLOOD LOSS: 500 mL. IMPLANT: 6-Kosovan x 22 cm stent in left ureter. SPECIMEN: Left renal stone. INDICATION: This is a 63-year-old female with history of a 1 cm left-sided renal stone. She is symptomatic from her stone. Of note, the stone is located in renal pelvis and causing mild hydronephrosis. Discussed the given symptoms and size of the stone, option of left-sided uteroscopy with holmium laser versus ESWL. Risk and benefits of each approach were discussed. She agreed to proceed with left-sided ureteroscopy with holmium laser. Reviewed the risks, which included, but not limited to bleeding, infection, injury to the ureter. She understood all the risks and agreed to proceed. DESCRIPTION OF OPERATION: The patient was brought into the operating room, general anesthesia was induced. She was prepped and draped in sterile fashion. She was placed in dorsal lithotomy position. Cystoscopy was carried with a 21-Kosovan sheath was inserted per urethra, cystoscopy was performed which showed no abnormality within the bladder. Attention was then carried to the left ureteral orifice, which was intubated with a sensor wire, the wire was advanced under fluoroscopy and into the kidney. At this point, a radiopaque stone was seen in the lower pole of the renal pelvis area. At this time, an 11/13- Kosovan access sheath was passed over the wire into the proximal ureter. Next, a flexible ureteroscope was inserted through the access sheath, renoscopy was performed which showed a large stone in the lower pole of the kidney. At this point, using a stone basket, the stone was repositioned into the upper pole. Using the holmium laser, the stone was busted, any sizeable stone fragments were removed using the stone basket and then sent out. Repeat renoscopy showed no evidence of bleeding or any sizable fragments. Pullback ureteroscopy was performed showing no injury to the ureter or any ureteral stone. As the ureteroscopy was withdrawn, a sensor wire was advanced through. Of note, prior to removing the scope, repeat fluoroscopy was performed and showed no radiopaque densities left. At this time, a ureteral stent was passed over the wire. The proximal curl was visualized under fluoroscopy and the distal curl was visualized using the cystoscope. The bladder was emptied at the end of the case. The patient tolerated the procedure well and was taken to the Recovery in stable condition. MMODL / IJN: [id number] /
--- NOTE | 2024-03-06 10:36 | FL ---
EXAMINATION TYPE: FL guidance operating room DATE OF EXAM: 02/12/2024 8:54 AM COMPARISON: Pre Operative Images if available both CT/MRI or plain film CLINICAL INDICATION: Female, 63 years old with history of LEFT KIDNEY STONE; TECHNIQUE: FL guidance operating room, multiple fluoroscopic images provided for procedure. Total fluoroscopy time: 15.4 seconds Total submitted images to PACS: 3 DAP: 3.3399 mGym2 Gycm2 uGym2 cGycm2 or equivalent. FINDINGS: Fluoroscopic imaging for lithotripsy. Calcification projects over the renal sinus. No evidence of nemesio e air. Multilevel degeneration changes of the spine. Gaseous dilation of bowel. IMPRESSION: 1. No evidence for intraoperative complication. 2. Please see the operative/procedural note for further details. [facility], , 03/06/2024 10:33 AM
== END 2024-01-22 14:45 ==
LOC: OR 11:00
PROVIDERS: ATTEND Urology
DX: N20.1 Calculus of ureter (principal); E07.9 Disorder of thyroid, unspecified; E11.9 Type 2 diabetes mellitus without complications; I10 Essential (primary) hypertension; F17.200 Nicotine dependence, unspecified, uncomplicated; Z85.3 Personal history of malignant neoplasm of breast; Z85.528 Personal history of other malignant neoplasm of kidney; Z88.8 Allergy status to other drugs, medicaments and biological substances; K21.9 Gastro-esophageal reflux disease without esophagitis; Z85.038 Personal history of other malignant neoplasm of large intestine; Z79.84 Long term (current) use of oral hypoglycemic drugs; Z79.899 Other long term (current) drug therapy; Z79.890 Hormone replacement therapy

== ENCOUNTER → 2024-02-14 | Outpatient (CLI) | payer OTHER ==
--- NOTE | 2024-02-14 11:12 | MM ---
Reason for Exam: Follow-up at short interval from prior study. Last screening mammogram was performed 7 month(s) ago. Patient History: Menarche at age 11. First Full-Term at age 32. Late child-bearing (after 30). Hysterectomy at age 58. Postmenopausal. Breast cancer, left, age 61. Colorectal cancer, age 51. Breast cancer, right, age 39. Previous chest radiation therapy at age 39. Tamoxifen, starting at age 61. Currently using Unspecified Hormone, starting at age 62. 2003, Lumpectomy on the Right side. 10/06/2021, Lumpectomy on the Left side. Core Biopsy on the Right side. Core Biopsy on the Left side. 10/06/2021, Malignant Core Biopsy on the left side. 08/15/2021, Malignant Core Biopsy on the left side. 04/06/2004, Benign Stereotactic Core Biopsy on the left side. 04/06/2004, Benign Stereotactic Core Biopsy on the right side. 2021, Radiation Therapy on the left side. 2003, Radiation Therapy. Maternal aunt had breast cancer, age 75. Prior Study Comparison: 05/24/2018 Bilateral Diagnostic Mammogram, [facility]. 05/30/2019 Bilateral Diagnostic Mammogram, [facility]. 05/31/2020 Bilateral Diagnostic Mammogram, [facility]. 07/19/2021 Bilateral Screening Mammogram, [facility]. 07/22/2021 Left Diagnostic Mammogram, [facility]. 07/27/2022 Bilateral MG diagnostic mammo w CAD KENNY, [facility]. 01/25/2023 Left MG 3D diag mammo w/cad LT, [facility]. 07/30/2023 Bilateral MG 3D diag mammo w/cad KENNY, [facility]. Tissue Density: Left: The breasts are heterogeneously dense, which may obscure small masses. Findings: Analyzed By CAD. Post lumpectomy changes left breast. Traumatic oil cyst retroareolar left breast. No new masses or distortion. No suspicious calcifications. Overall Assessment: Benign, BI-RAD 2 Management: Diagnostic Mammogram of both breasts in 5 months. . Results were given to the patient verbally at the time of exam. Patient should continue monthly self-breast exams. A clinical breast exam by your physician is recommended on an annual basis. This exam should not preclude additional follow-up of suspicious palpable abnormalities. Note on Claudette scores and lifetime risk: 1. A Claudette score greater than 3% is considered moderate risk. If this is the case, consider specialist referral to assess eligibility for a risk reducing agent. 2. If overall lifetime risk for the development of breast cancer is 20% or higher, the patient may qualify for future screening with alternating mammogram and breast MRI. Electronically signed and approved by: Giovani Thomson M.D. Radiologis
== END | disposition home or self-care (01) ==
LOC: RADMAMWWP 10:40
PROVIDERS: ATTEND Surgery
DX: Z85.3 Personal history of malignant neoplasm of breast
CPT/HCPCS: 77061; 77065

== ENCOUNTER → 2024-09-03 | Outpatient (CLI) | payer MEDICARE ==
[2024-09-03 07:41] LABS: African American GFR (CKD) 59 (>60 ml/min/1.73 sqM); Blood Urea Nitrogen 24 mg/dL (7-17); Non-African American GFR(CKD) 51 (>60 ml/min/1.73 sqM)
--- NOTE | 2024-09-03 10:41 | CT ---
EXAMINATION TYPE: CT abdomen wo/w con DATE OF EXAM: 09/03/2024 9:28 AM COMPARISON: 07/30/2023 CLINICAL INDICATION: Female, 63 years old with history of C64.2 MALIGNANT NEOPLASM OF LEFT KIDNEY; Hx malignant neoplasm LT kidney TECHNIQUE: CT of the abdomen before and after IV contrast. Delayed images of the kidneys also perform ed. Coronal and sagittal reconstructions. Contrast used:80 ML mL of Isovue [address] DLP: 1459 mGycm, Automated exposure control for dose reduction was used. FINDINGS: LOWER CHEST: Heart and lungs are normal in size without pericardial effusion. Similar reticular valentine e of the lower lungs suggesting some chronic interstitial changes. No pleural effusion. ABDOMEN LIVER: Unremarkable GALLBLADDER AND BILE DUCTS: Gallbladder surgically absent. No biliary ductal dilatation. PANCREAS: Fatty infiltration. SPLEEN: Small hilar splenule but otherwise unremarkable. ADRENAL GLANDS: Unremarkable. KIDNEYS AND URETERS: No hydronephrosis. Redemonstrated are postsurgical changes of wedge resection up per to mid pole left kidney. Slightly distorted appearance at the midpole with delayed scan showing a ssociated hypodensity measuring 3.3 cm previously measuring approximately 1.8 cm. Otherwise, both couple tiny benign-appearing renal cortical cysts measuring up to 7 mm. PELVIS Not imaged ABDOMEN & PELVIS STRUCTURES STOMACH AND BOWEL: No evidence of bowel obstruction. Scattered [id number] stool. No pericolonic inflammatory change. PERITONEUM/RETROPERITONEUM: No evidence of pneumoperitoneum or free fluid. VASCULATURE: Mild to moderate atherosclerotic calcifications abdominal aorta. MUSCULOSKELETAL: Hypertrophic facet arthropathy lower lumbar spine with degenerative grade 1 anteroli sthesis L5-S1. LYMPH NODES: No gross evidence for lymphadenopathy. SOFT TISSUE/ABDOMINAL WALL: Unremarkable IMPRESSION: 1. Postsurgical change with previous wedge resection approximately midpole left kidney. Distorted ap pearance at the mid pole with associated 3.3 cm hypodensity appears slightly increased from 07/30/2023 (previously measuring 1.8 cm). Early local recurrence difficult to exclude. Close surveillance follo w-up versus more detailed assessment with MRI is recommended. 2. No findings of metastatic disease in the abdomen. [facility], , 09/03/2024 10:39 AM
== END | disposition home or self-care (01) ==
LOC: RADCTMAIN 06:57
PROVIDERS: ATTEND Urology
DX: C64.2 Malignant neoplasm of left kidney, except renal pelvis (principal); Z98.890 Other specified postprocedural states
CPT/HCPCS: 82565; 84520; 74170; 36415; Q9967

== ENCOUNTER → 2024-12-01 | Outpatient (CLI) | payer MEDICARE ==
--- NOTE | 2024-12-01 21:03 | BD ---
EXAMINATION TYPE: Axial Bone Density DATE OF EXAM: 12/01/2024 CLINICAL HISTORY: 64 years old Female. ICD-10 CODE: M81.0 OSTEOPENIA , Additional History: Height: 60.5 in Weight: 170 lbs FRAX RISK QUESTIONS: pt states rt wrist fx age 39 Secondary Osteoporosis: 2. Hyperthyroidism: yes HISTORY OF: History of Wrist Fracture: rt wrist age 39 MEDICATIONS: Thyroid Medications: yes Which medication: Levothyroxine How Lon+ years EXAM MEASUREMENTS: Bone mineral densitometry was performed using the [employer] System. Bone mineral density as measured about the Lumbar spine is: ----- L1-L4(G/cm2): 1.279 T Score Values are as follows: ----- L1: 0.4 ----- L2: 0.7 ----- L3: 0.9 ----- L4: 1.2 ----- L1-L4: 0.8 Z Score Values are as follows: ----- L1: 1.6 ----- L2: 1.9 ----- L3: 2.1 ----- L4: 2.3 ----- L1-L4: 2.0 Bone mineral density has: Decreased -1.0sincestudy of: Bone mineral density about the R hip (g/cm2): 0.987 Bone mineral density about the L hip (g/cm2): 1.058 T Score values are as follows: -----R Neck: -1.6 -----L Neck: -1.4 -----R Total: -0.2 -----L Total: 0.4 Z Score values are as follows: -----R Neck: -0.4 -----L Neck: -0.2 -----R Total: 0.7 -----L Total: 1.3 Bone mineral density has: Increased 2.5since study of: 10/28/2021 FRAX%s: The graph provided illustrates a 14.3chancefor a major osteoporotic fx and a 1.6chance for th e hips probability for fx in 10 years time. IMPRESSION: Normal (Values between +1 and -1 indicate normal bone mass). Consider repeating this study in 5 year s or sooner if there is some new clinical indication. NOTE: T-SCORE=SD OF THE YOUNG ADULT MEAN. [facility], , 12/01/2024 9:01 PM
== END | disposition home or self-care (01) ==
LOC: RADBDWWP 15:52
PROVIDERS: ATTEND Internal Medicine Hematology & Oncology
DX: Z03.89 Encounter for observation for other suspected diseases and conditions ruled out (principal); M81.0 Age-related osteoporosis without current pathological fracture
CPT/HCPCS: 77080

== ENCOUNTER 2024-12-04 15:21 | Emergency (ER) | payer OTHER, MEDICARE ==
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
[2024-12-04] MEDS: KETOROLAC 15 MG/ML 1 ML VIAL IM STA (15:51)
[2024-12-04] MEDS: MORPHINE SULFATE 4 MG/ML SYRINGE IM STA (15:51)
[2024-12-04] MEDS: LIDOCAINE 4% PATCH TOPICAL ONE (15:52)
[2024-12-04 16:14] LABS: Bacteria,Urine Rare /hpf; Bilirubin,Urine Negative (Negative); Blood,Urine Negative (Negative); Color,Urine Light Yellow; Glucose,Urine (UA) Trace (Negative); Ketones,Urine Negative (Negative); Leukocyte Esterase,Urine Negative (Negative); Mucus,Urine Occasional /hpf; Nitrite,Urine Negative (Negative); PH, Urine 5.0 (5.0-8.0); Protein,Urine Negative (Negative); RBC,Urine 2 /hpf (0-5); Specific Gravity,Urine 1.013 (1.001-1.035); Squamous Epithelial Cell,Urine 8 /hpf (0-4); Urobilinogen,Urine <2.0 mg/dL (<2.0); WBC,Urine 5 /hpf (0-5)
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
[2024-12-04] MEDS: HYDROmorphone 1 MG/ML 1 ML SYRINGE IVP STA (17:13)
[2024-12-04] MEDS: SODIUM CHLORIDE 0.9% 1,000 ML IV ONE (17:13)
[2024-12-04 17:18] LABS: Glucose,Whole Blood 114 mg/dL (70-110)
[2024-12-04] MEDS: ONDANSETRON 4 MG/2 ML VIAL IVP STA (18:47)
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
[2024-12-04] MEDS: ONDANSETRON 4 MG ODT STARTER PACK 2 TAB BTL PO STA (19:27)
[2024-12-04] MEDS: ACET/COD 300 MG/30 MG STARTER PACK 6 TAB BTL PO STA (19:27)
[2024-12-04] MEDS: PROCHLORPERAZINE INJ 10 MG/2 ML VIAL IM STA (19:45)
[2024-12-04 20:08] VITALS: BP 111/66; PULSE 68; RESP 20; TEMP 97.8
== END 2024-12-04 20:07 | disposition home or self-care (01) ==
LOC: EC 15:21
DX: M54.50 Low back pain, unspecified (principal); Z88.2 Allergy status to sulfonamides; Z91.041 Radiographic dye allergy status; V43.52XA Car driver injured in collision with other type car in traffic accident, initial encounter
CPT/HCPCS: 36415; 93005; 81001; 72131; 74176; 99284; 96374; 96375 ×2; 96372; 96361 ×2; J2270; J0780; J3360; J2405; J1171; J1885; S0119

== ENCOUNTER → 2024-12-24 | Outpatient (CLI) | payer MEDICARE ==
--- NOTE | 2024-12-24 11:57 | MR ---
EXAMINATION TYPE: MR kidney wo/w con DATE OF EXAM: 12/24/2024 7:54 AM COMPARISON: CT scan abdomen from 12/04/2024. CLINICAL INDICATION: Female, 64 years old with history of C64.2 MALIGNANT NEOPLASM OF LEFT KIDNEY; PH H, abnormal cyst on kidney TECHNIQUE: Multiplanar multi-sequence imaging was performed without contrast. Post contrast imaging was performed. Post IV contrast subtraction images were also submitted for review. IV Contrast: 7 mL Gadobutrol FINDINGS: LOWER CHEST: Heart is mildly enlarged for size. ABDOMEN Liver: No evidence for hepatic steatosis or cirrhosis. Gallbladder and Bile ducts: No evidence for ductal dilation, or biliary stricture or evidence of chol edocholithiasis. The gallbladder is within normal limits. Pancreas: Fatty pseudohypertrophy changes of the pancreatic parenchyma's. No ductal dilation. No evid ence for solid mass. Spleen: Normal for size. Adrenal glands: Unremarkable. Kidneys: Simple appearing bilateral renal cortical high T2 signal cysts r measuring up to 7 mm on the left and 10 mm on the right. Additional low T2 signal lesion measuring 31 x 19 enhancement is confir med on postcontrast imaging. Mm which demonstrates some heterogenous T1 signal. Postcontrast imaging demonstrates heterogenous enhancement pattern with extension into the renal sinus suggested. No evide nce for obstructive uropathy. No suspicious renal masses. Stomach and Bowel: No evidence for bowel wall thickening or evidence for obstruction. Retroperitoneum/Peritoneum: No evidence of pneumoperitoneum or free fluid. Vasculature: No aortic aneurysm. Musculoskeletal: The osseous structures appear intact. Lymph Nodes: No gross evidence for lymphadenopathy. Abdominal wall: Unremarkable. IMPRESSION: 1. Left renal mass with suspected invasion into the left renal vein suspicious for recurrence of pat ient's known renal cell carcinoma status post partial nephrectomy. 2. No evidence for lymphadenopathy this time. 3. Simple appearing bilateral renal cortical cysts. [facility], , 12/24/2024 11:55 AM
== END | disposition home or self-care (01) ==
LOC: RADMRIMAIN 07:03
PROVIDERS: ATTEND Urology
DX: C64.2 Malignant neoplasm of left kidney, except renal pelvis (principal); N28.1 Cyst of kidney, acquired; N28.89 Other specified disorders of kidney and ureter; Z90.5 Acquired absence of kidney
CPT/HCPCS: 74183; A9585